=== PATIENT | female | born 1975 | race Caucasian/White ===

== ENCOUNTER 2022-01-29 10:10 | Inpatient (IN) ==
--- NOTE | 2022-01-29 10:23 | Emergency Department Note ---
Impression & Plan Seizure, History of opioid abuse, Alcohol dependence, Acute hypokalemia, Alcohol use disorder, Hypomagnesemia ED Provider Note NAME: MELO RADNALL AGE: 46 SEX: F : 1975 ARRIVES VIA: Ambulance INFORMANT: Patient ED PROVIDER(S): Vishnu Oliveros DO CHIEF COMPLAINT: seizure HPI: Patient is a 46-year-old female with alcohol dependence with hepatitis C, gastroparesis with previous seizures secondary to withdrawal that presents to the ER for seizure. She normally drinks about 10 little bottles of alcohol a day. 2 weeks ago she cut back to 2 drinks and did this gradually. Last drink was 2 days ago. Seizure was witnessed today and lasted for 5 to 7 minutes by her son. EMS brought her in. Denies any headache or change in vision. No chest pain or shortness of breath. No nausea, vomiting, or diarrhea. No dysuria, urgency, or frequency. ROS: See above HPI for pertinent positives & negatives. A total of 10 systems reviewed and were otherwise negative. PAST MEDICAL HISTORY:See Below PAST SURGICAL HISTORY:See Below FAMILY HISTORY:See Below SOCIAL HISTORY:See Below HOME MEDICATIONS:See Below ALLERGIES:See Below VITALS:See Below PHYSICAL EXAMINATION: GENERAL: Sitting up in bed, alert, well appearing, well nourished, no distress, non-toxic EYE EXAM: normal conjunctiva. PERRL and EOM's grossly intact. HEAD: NC/AT OROPHARYNX: no exudate, no erythema, lips, buccal mucosa, and tongue normal and mucous membranes are moist NECK: supple, no nuchal rigidity, no adenopathy, non-tender LUNGS: Clear to auscultation. Normal chest wall mechanics HEART: no murmurs, S1 normal and S2 normal ABDOMEN: abdomen soft, non-tender, normo-active bowel sounds, no masses, no rebound or guarding. BACK: Back is symmetrical on inspection and there is no deformity, no midline tenderness, no CVA tenderness. SKIN: no rashes and no bruising UPPER EXTREMITIES: upper extremities are grossly normal. LOWER EXTREMITIES: No pitting edema. NEURO EXAM: Normal sensorium, cranial nerves II-XII intact, normal speech, no weakness of arms, no weakness of legs. No drift. Finger to nose intact. Gross sensation intact. MEDICAL DECISION MAKING: Patient is a 46-year-old female who presents ER for above-stated complaint. IV was established blood work was obtained. Labs show no significant leukocytosis or anemia. Mild thrombocytopenia at 103. Hypokalemia on the BMP at 2.8 magnesium was low at 1.2. LFTs with mild elevation in AST of 102. T bili slightly up at 2. COVID-negative. CT head was negative. Patient was given IV fluids and Valium. Updated bedside. Admitted for further work-up. Discussed with Dr. Emmanuel Richard for further evaluation. Triage Nursing notes reviewed. Limited review of prior medical records performed Vital Signs: reviewed and remarkable for no significant abnormalities Differential diagnosis: Differential diagnosis includes etiologies such as infection, hypoglycemia, electrolyte abnormalities, cardiac sources, intracerebral event, trauma, tox icologic, neurologic, as well as others were entertained. ER treatment provided: See below Diagnostics interpreted by me: ECG: Sinus rhythm rate 80 Normal axis No PVCs QTC 477 Cardiac Monitoring: An order was placed for continuous cardiac monitoring. The monitor shows a rate of 82 with sinus rhythm. Laboratory studies: As stated above and show below. Imaging studies: CT head was negative Consultation(s): Discussed with Dr. 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 History of stomach ulcers HPV (human papilloma virus) infection Jaw clicking NO LOCKING Migraine Spinal stenosis Surgical History H/O colonoscopy History of esophagogastroduodenoscopy (EGD) Hx laparoscopic cholecystectomy (01/27/20) Family History Grandmother (Maternal) Breast cancer Throat cancer Grandfather (Maternal) Diabetes Heart disease Hypertension Myocardial infarction Other No family history of adverse response to anesthesia Denies family history of Ovarian cancer Prostate cancer Colorectal cancer Social History Smoking Status: Unknown if ever smoked Tobacco Type: E-cigarettes / Vaping packs per day: 1; Cigarettes Per Day: 2 CIG DAILY/VAPE "A LITTLE BIT"; Second Hand Exposure: No; Hx Alcohol Use: Yes Alcohol type: hard liquor Alcohol Intake Frequency: 4 or More x per/Week Hx Substance Use: No Preferred Language: Greenlandic Communication Ability: Effective Visual Impairment: No Limitations Hearing Ability: Normal Fire Pot Operator Required: No Beliefs That Will Affect Care: None marital status: Single Current Living Situation: Family Current Living Situation Comment: WITH SON 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 How many Children do You have: 1 Feels Safe at Home: Yes Childhood Exposure to Second-Hand Smoke: Yes Dental Care, Regularly: Yes Physical Activity Frequency: 5-6 Times per Week Seatbelt Use: sometimes Sunscreen Use: Yes Assistive Devices: None Allergies Allergies Allergy/AdvReac Type Severity Reaction Status Date / Time latex Allergy Mild CRACKS SKIN Verified 11/16/21 17:39 Home Meds Home Medications Medication Instructions Recorded Confirmed gabapentin 300 mg capsule 300 mg PO BID 12/20/19 01/29/22 (Neurontin) buprenorphine 8 mg-naloxone 2 mg 1 tab sublingual DAILY 11/16/21 01/29/22 sublingual tablet topiramate 50 mg tablet (Topamax) 100 mg PO BID 11/16/21 01/29/22 Previous Rx's Medication Instructions Recorded pantoprazole 40 mg tablet,delayed 40 mg PO QAM #90 tabs 11/16/21 release (Protonix) rizatriptan 10 mg tablet See Rx Instructions PO .COMPLEX #9 11/16/21 tabs ondansetron 4 mg disintegrating 4 mg PO Q6H PRN nausea and 01/20/22 tablet vomiting #10 tabs Results & Data (ED) Vital Signs Vital Signs - 24 hr 01/29/22 10:27 01/29/22 10:31 Temperature 36.8 C Temperature Source Oral Pulse Rate 98 H Pulse Rate [Apical] 86 Pulse Rhythm [Apical] Regular Respiratory Rate 16 16 Respiratory Effort / Characteristics Non-Labored Respiratory Depth Normal Blood Pressure 120/81 Blood Pressure Mean 94 Pulse Oximetry 95 96 Oxygen Delivery Method Room Air Room Air Sepsis Recent Fever Within 48 Hours No Sepsis New/Unexplained Change in Mental Status No Sepsis Action Taken by Nursing No Action Required Laboratory Data Result diagrams: 01/29/22 10:26 01/29/22 10: Lab Results 01/29/22 01/29/22 01/29/22 Range/Units 10: 10: 10: WBC 7.93 (4.8-10.8) K/ul RBC 4.19 (3.93-5.22) M/uL Hgb 13.0 (12.0-16.0) g/dl Hct 37.8 (34.1-44.9) % MCV 90.2 (80.0-100.0) fL MCH 31.0 (25.0-34.0) pg MCHC 34.4 (32.0-36.0) g/dL RDW Std Deviation 40.4 (36.4-46.3) fL RDW Coeff of Josh 12.3 (11.5-14.5) % Plt Count 103 L (130-400) K/uL MPV 11.8 (9.4-12.3) fL Immature Gran % (Auto) 0.5 % Neut % (Auto) 72.2 % Lymph % (Auto) 18.8 % [place] % (Auto) 7.6 % Eos % (Auto) 0.1 % Baso % (Auto) 0.8 % Neut # (Auto) 5.73 (1.4-6.5) K/uL Lymph # (Auto) 1.49 (1.2-3.4) K/uL Carolina # (Auto) 0.60 (0.24-0.82) K/uL Eos # (Auto) 0.01 (0-0.50) K/uL Baso # (Auto) 0.06 (0-0.2) K/uL Immature Gran # (Auto) 0.04 H (0.00-0.02) K/uL Sodium 135 L (136-145) mmol/L Potassium 2.8 L (3.5-5.1) mmol/L Chloride 99 (98-107) mmol/L Carbon Dioxide 24 (21-32) mmol/L Anion Gap 12 H (3-11) BUN 26 H (6-23) mg/dl Creatinine 1.12 (0.6-1.2) mg/dl Est Cr Clr Drug Dosing 62.8 ml/min Est GFR ( Amer) 68.7 ml/min Est GFR (Non-Af Amer) 59.3 ml/min BUN/Creatinine Ratio 23.2 H (10-20) Glucose 91 (70-99(Fasting)) mg/dl Calcium 9.5 (8.5-10.1) mg/dl Magnesium 1.2 L (1.7-2.4) mg/dl Total Bilirubin 2.0 H (0.2-1.0) mg/dl AST 102 H (13-39) U/L ALT 39 (7-52) U/L Alkaline Phosphatase 82 (34-104) U/L Total Protein 6.9 (6.0-8.3) gm/dl Albumin 4.2 (3.4-5.0) gm/dl Globulin 2.7 (2.5-4.0) gm/dl Albumin/Globulin Ratio 1.6 (0.9-2) Ethyl Alcohol mg/dL < 10.0 (<10.0) mg/dl Administered Medications Potassium Chloride (K Alexei / Wtr) 10 meq in 100 mls @ 100 mls/hr IV Q1H ESTELA; Protocol Stop: 01/29/22 14:44 Last Admin: 01/29/22 12:56 Dose: 100 mls/hr Documented By: CARLOS Magnesium Sulfate/Dextrose (Magnesium Sulfate / D5w) 1 gm in 100 mls @ 100 mls/hr IV Q1H ESTELA Stop: 01/29/22 14:31 Last Admin: 01/29/22 12:56 Dose: 100 mls/hr Documented By: CARLOS Lactated Ringer's (Lr) 1,000 mls @ 125 mls/hr IV .Q8H ESTELA Stop: 02/28/22 12:53 Last Admin: 01/29/22 13:20 Dose: 125 mls/hr Documented By: CARLOS Discontinued Medications Diazepam (Diazepam 5 Mg/Ml Inj 10ml Vial) 2 mg IV NOW STA Stop: 01/29/22 10:20 Last Admin: 01/29/22 10:46 Dose: 2 mg Documented By: CARLOS Multivitamins 10 ml/ Thiamine HCl 100 mg/ Folic Acid 1 mg/Sodium Chloride 1,011.2 mls @ 1,011.2 mls/hr IV .Q1H ONE Stop: 01/29/22 13:34 Last Admin: 01/29/22 13:17 Dose: 1,011.2 mls/hr Documented By: KV Imaging Data Radiologist's Impression: Head CT 01/29/22 11:[address] DOSE: 537.48 mGy.cm HISTORY: Seizure like activity. fall TECHNIQUE: Multiaxial CT images of the head were performed without the use of intravenous contrast. Automated exposure control was utilized for this study. A dose lowering technique was utilized adhering to the principles of ALARA. Comparison: Head CT 08/25/2021. Findings: The paranasal sinuses and mastoid air cells are clear. The calvarium and skull base are intact. The ventricles and sulci are within normal limits. There is no mass, hematoma, midline shift, or acute infarct. Impression: No acute intracranial abnormality. ACT 112: Negative or not required by law. Electronically signed by: Dylon Jimenez M.D. 01/29/2022 11:42 AM Discharge Plan Visit Data Chief Complaint: Alcohol Withdrawal Stated Complaint: SEIZURE ED Provider: Vishnu Oliveros Discharge Problem: Seizure, History of opioid abuse, Alcohol dependence, Acute hypokalemia, Alcohol use disorder, Hypomagnesemia Patient Disposition: Admitted As Inpatient Discharge Instructions Interventions: ED Discharge Assessment Last Done: 01/29/22 12:44
[2022-01-29 11:00] LABS: Hematocrit (blood only) 37.8 % (34.1-44.9); Mean Corpuscular Hgb Conc 34.4 g/dL (32.0-36.0); Mean Corpuscular Volume 90.2 fL (80.0-100.0); Mean Platelet Volume 11.8 fL (9.4-12.3); Platelet Count 103 K/uL (130-400); RDW Coefficient of Variation 12.3 % (11.5-14.5); RDW Standard Deviation 40.4 fL (36.4-46.3); Red Blood Count 4.19 M/uL (3.93-5.22); White Blood Count 7.93 K/ul (4.8-10.8)
[2022-01-29 11:23] LABS: Albumin Globulin Ratio 1.6 (0.9-2); Albumin Level 4.2 gm/dl (3.4-5.0); BUN Creatinine Ratio 23.2 (10-20); Calcium 9.5 mg/dl (8.5-10.1); Creatinine Clr Calc Pharmacy 62.8 ml/min; Est GFR (African American) 68.7 ml/min; Est GFR (Non-African American) 59.3 ml/min; Globulin 2.7 gm/dl (2.5-4.0); Magnesium 1.2 mg/dl (1.7-2.4); Potassium 2.8 mmol/L (3.5-5.1); Total Protein 6.9 gm/dl (6.0-8.3)
[2022-01-29 11:29] LABS: Basophils # (auto) 0.06 K/uL (0-0.2); Basophils % (auto) 0.8 %; Eosinophils # (auto) 0.01 K/uL (0-0.50); Eosinophils % (auto) 0.1 %; Immature Granulocytes # (auto) 0.04 K/uL (0.00-0.02); Immature Granulocytes % (auto) 0.5 %; Lymphocytes # (auto) 1.49 K/uL (1.2-3.4); Lymphocytes % (auto) 18.8 %; Monocytes % (auto) 7.6 %; Neutrophils # (auto) 5.73 K/uL (1.4-6.5); Neutrophils % (auto) 72.2 %
--- NOTE | 2022-01-29 11:43 | CT Scan Report ---
HEAD CT NONCONTRAST CT DOSE: 537.48 mGy.cm HISTORY: Seizure like activity. fall TECHNIQUE: Multiaxial CT images of the head were performed without the use of intravenous contrast. A utomated exposure control was utilized for this study. A dose lowering technique was utilized adheri ng to the principles of ALARA. Comparison: Head CT 08/25/2021. Findings: The paranasal sinuses and mastoid air cells are clear. The calvarium and skull base are int act. The ventricles and sulci are within normal limits. There is no mass, hematoma, midline shift, or acute infarct. Impression: No acute intracranial abnormality. ACT 112: Negative or not required by law. Electronically signed by: Dylon Jimenez M.D. 01/29/2022 11:42 AM
--- NOTE | 2022-01-29 12:26 | History & Physical Report ---
Date of Service January 29, 2022 Assessment & Plan (1) Alcohol use disorder: Plan: 10+ 3.4-oz mini liquor bottles/day, slightly more over the past several weeks due to job stress. Recently cut back, last week went 5 days alcohol free, and then had 2 shots two days ago, 01/27 and today had a witnessed seizure lasting ~[address] without acute injury. EtOH level <10.0 Active withdrawal protocol with scheduled gabapentin and Ativan as needed. IVF with repletion of potassium and magnesium. Folate and thiamine daily. AST 102, consistent with alcohol use disorder, all other LFTs WNL, does not appear to be an acute alcohol hepatitis. Continue Protonix daily. No history of esophageal varices/hematemesis/concern for UGI bleed today. Patient offered referral to case management for outpatient programs and services referral, declines at this time. Encouraged her to reach out to staff if she changes her mind. (2) Acute hypokalemia: Plan: K 2.8, will repeat and recheck with a.m. labs. (3) Hypomagnesemia: Plan: 1.2, will replete and recheck with a.m. labs. (4) Anxiety and depression: Plan: Managed by outside psychiatry, on gabapentin 300 mg twice daily. (5) History of opioid abuse: Plan: History of heroin and opioid pill use disorder, in remission, currently on Suboxone daily tab. PDMP reviewed. History of Present Illness Chief Complaint: Seizure at home this morning Primary Care Provider: NO PCP Laverne Jenkins is a 46-year-old female with past medical history significant for active alcohol use disorder, previous heroin use disorder now in remission, hepatitis C infection, anxiety, depression, and gastroparesis who is presenting today after witnessed seizure at home. Patient states she is an alcoholic and has been drinking at least 10 3.4-oz bottles of liquor/day, but estimates it is probably been more than 10 over the past several weeks. Last week, she tried to cut down her alcohol intake to just 2 of these mini bottles a day, and had gone 5 days alcohol free last week, and then had 2 shots of alcohol 2 days ago, 01/27. She has been under a significant amount of stress lately related to her job which she recently quit. This morning in front of her son she had seizure-like activity that lasted for several minutes, she estimates no more than 5 minutes. She has no recollection of the event, does not believe she hit her head and is without any head pain or pain elsewhere. She has never been hospitalized for alcohol withdrawal, but has been to rehab several times and has had seizures related to withdrawal attempts in the past. Upon presentation she is hemodynamically stable, vital signs within normal limits. Labs significant for low potassium of 2.8, magnesium 1.2, T bili 2.0, AST 102, other LFTs within normal limits. Alcohol level <10.0. Platelets 103. Head CT unremarkable for acute injury or process. Allergies Allergy/AdvReac Type Severity Reaction Status Date / Time latex Allergy Mild CRACKS SKIN Verified 11/16/21 17:39 Home Medications Medication Instructions Recorded Confirmed Type gabapentin 300 mg capsule 300 mg PO BID 12/20/19 01/29/22 History (Neurontin) buprenorphine 8 mg-naloxone 2 mg 1 tab sublingual DAILY 11/16/21 01/29/22 History sublingual tablet pantoprazole 40 mg tablet,delayed 40 mg PO QAM #90 tabs 11/16/21 01/29/22 Rx release (Protonix) rizatriptan 10 mg tablet See Rx Instructions PO .COMPLEX #9 11/16/21 01/29/22 Rx tabs topiramate 50 mg tablet (Topamax) 100 mg PO BID 11/16/21 01/29/22 History ondansetron 4 mg disintegrating 4 mg PO Q6H PRN nausea and 01/20/22 01/29/22 Rx tablet vomiting #10 tabs Past Med/Surg History Medical History (Updated 01/29/22 @ 13:14 by Aubree Eller PA-C) Anxiety and depression Cholelithiasis Chronic back pain LOWER BACK/NECK PAIN GERD (gastroesophageal reflux disease) Hepatitis C NO TREATMENT History of back problems History of blood clots PE-5-6 YRS AGO-"SMOKER/ON DEPO SHOT-TREATED AT THE TIME WITH BLOOD THINNERS"- NO ISSUES SINCE History of opioid abuse 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 History of stomach ulcers HPV (human papilloma virus) infection Jaw clicking NO LOCKING Migraine Spinal stenosis Surgical History H/O colonoscopy History of esophagogastroduodenoscopy (EGD) Hx laparoscopic cholecystectomy (01/27/20) Family History Grandmother (Maternal) Breast cancer Throat cancer Grandfather (Maternal) Diabetes Heart disease Hypertension Myocardial infarction Other No family history of adverse response to anesthesia Denies family history of Ovarian cancer Prostate cancer Colorectal cancer Social History Smoking Status: Unknown if ever smoked Tobacco Type: E-cigarettes / Vaping packs per day: 1; Cigarettes Per Day: 2 CIG DAILY/VAPE "A LITTLE BIT"; Second Hand Exposure: No; Hx Alcohol Use: Yes Alcohol type: hard liquor Alcohol Intake Frequency: 4 or More x per/Week Hx Substance Use: No Preferred Language: Moroccan Communication Ability: Effective Visual Impairment: No Limitations Hearing Ability: Normal Assessment Specialist Required: No Beliefs That Will Affect Care: None marital status: Single Current Living Situation: Family Current Living Situation Comment: WITH SON 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 How many Children do You have: 1 Feels Safe at Home: Yes Childhood Exposure to Second-Hand Smoke: Yes Dental Care, Regularly: Yes Physical Activity Frequency: 5-6 Times per Week Seatbelt Use: sometimes Sunscreen Use: Yes Assistive Devices: None Review of Systems Review of Systems: Constitutional: No fever/chills, weakness, fatigue, myalgias, anorexia, night sweats Eyes: No diplopia, no worsening or blurred vision ENT: normal hearing, no trouble swallowing Respiratory: No cough, sputum, dyspnea at rest or on exertion Cardiovascular: No chest pain, tightness or palpitations Abdomen: No pain, nausea, vomiting, diarrhea or constipation : Denies dysuria, hematuria, increased urgency/frequency, urinary retention Musculoskeletal: No joint pain, calf pain, swelling Neurologic: No weakness, numbness/tingling, or balance problems Psychiatric: No anxiety or depression Skin: No rash or itch Physical Exam Physical Exam: General: awake, alert, pleasant and cooperative, no apparent distress, mildly tremulous Head: Normocephalic, atraumatic ENT: PERRL, EOMI, no pharyngeal exudate, mucous membranes moist Chest: Clear to auscultation, on room air, no adventitious breath sounds Cardiac: Regular rate and rhythm, no murmur, no JVD, normal peripheral pulses, good capillary refill Abdominal: NABS x 4 quadrants, soft, nontender to palpation, no rebound, guarding or tenderness Extremities: Normal inspection, no peripheral edema or erythema, calfs nontender to palpation Psych: Normal mood and affect Neuro: AAO x 3, strength intact bilaterally and rated 5/5, no motor deficits, speech is clear, no peripheral sensory deficits Skin: Skin tear on right fifth metacarpal due to punching a wall this week, does not appear infected, able to move all digits without significant pain no swelling Results & Data Results & Data ([facility]) Vital Signs (Past 12 Hours) Vital Signs Temp Pulse Pulse Resp BP Pulse Ox O2 Del Method 01/29/22 10:31 86 16 96 Room Air 01/29/22 10:27 36.8 C 98 H 16 120/81 95 Room Air Laboratory Results Abnormal lab results 01/29/22 01/29/22 Range/Units 10:26 10:26 Plt Count 103 L (130-400) K/uL Immature Gran # (Auto) 0.04 H (0.00-0.02) K/uL Sodium 135 L (136-145) mmol/L Potassium 2.8 L (3.5-5.1) mmol/L Anion Gap 12 H (3-11) BUN 26 H (6-23) mg/dl BUN/Creatinine Ratio 23.2 H (10-20) Magnesium 1.2 L (1.7-2.4) mg/dl Total Bilirubin 2.0 H (0.2-1.0) mg/dl AST 102 H (13-39) U/L Diagnostic Findings Head CT 01/29/22 11:[address] DOSE: 537.48 mGy.cm HISTORY: Seizure like activity. fall TECHNIQUE: Multiaxial CT images of the head were performed without the use of intravenous contrast. Automated exposure control was utilized for this study. A dose lowering technique was utilized adhering to the principles of ALARA. Comparison: Head CT 08/25/2021. Findings: The paranasal sinuses and mastoid air cells are clear. The calvarium and skull base are intact. The ventricles and sulci are within normal limits. There is no mass, hematoma, midline shift, or acute infarct. Impression: No acute intracranial abnormality. ACT 112: Negative or not required by law. Electronically signed by: Dylon Jimenez M.D. 01/29/2022 11:42 AM ECG Additional Comments: Normal sinus rhythm T wave abnormality, consider lateral ischemia Prolonged QT Abnormal ECG When compared with ECG of 26-JUL-2021 01:14, Incomplete right bundle branch block is no longer Present T wave inversion now evident in Lateral leads. Code Status & VTE Plan Code Status Full code. Supervising Physician Co-Signing Physician Notes Patient was seen and examined independently I discussed the case with Aubree MAC I reviewed pertinent past medical social family history and also the plan of care and agree with the plan of care. Patient is here with request for alcohol withdrawal treatment. Patient follows with [place] and also [place] for counseling as an outpatient. Patient states work stress related to working at the [employer] led to her increasing her alcohol intake. She is quit her job. She has support at home with a son who lives in the home with her Physical exam she is not tremulous at this time she does have a open area on her right fifth knuckle which she says she punched a wall she is no tenderness to the metacarpals of that hand does not appear to be infected. She is not tachycardic at this time she is minor tremulousness use no asterixis she is alert and oriented Patient be admitted for alcohol withdrawal she was offered counseling as an inpatient which she declined but I told her if she reconsiders to let us know Patient is significantly hypokalemic/hypomagnesemic which will be repleted She does not appear to have alcoholic hepatitis at this time Intake alcohol is 0 Any exceptions will be noted below PG Care Time/CCT Total # of Minutes Spent Total Time Spent with Patient: Total time spent is greater than 50% in coordination of care (as documented) at patient's floor/unit and/or counseling patient: Coding Level of Care Code 56376 Initial Inpt Care Lvl 3 Diagnoses Alcohol use disorder F19.90 Acute hypokalemia E87.6 Hypomagnesemia E83.42 Anxiety and depression F41.9; F32.A History of opioid abuse F11.11
[2022-01-29] MEDS ORDERED: MULTI-VITAMIN INFUSION 10 ML, THIAMINE HCL 100 MG, FOLIC ACID 1 MG in SODIUM CHLORIDE 0... IV ONE (12:35)
[2022-01-29] MEDS ORDERED: ALUMINUM/MAGNESIUM SUSP 30 ML UDC PO PRN (12:54)
[2022-01-29] MEDS ORDERED: GABAPENTIN 600 MG TAB PO ONE (12:54)
[2022-01-29] MEDS ORDERED: RIZATRIPTAN BENZOATE 10 MG TAB PO PRN (12:54)
[2022-01-29] MEDS ORDERED: Ativan PO Alcohol Withdrawal--Active Protocol PO PRN (12:54)
[2022-01-29] MEDS ORDERED: POLYETHYLENE (MIRALAX) 17 GM PACK PO PRN (12:54)
[2022-01-29] MEDS ORDERED: LORazepam 1 MG TAB PO PRN (12:54)
[2022-01-29] MEDS ORDERED: GABAPENTIN 1200MG ALCOHOL WITHDRAWAL LOAD PO STA (12:54)
[2022-01-29] MEDS: POTASSIUM CHLORIDE / WTR 10 MEQ/100 ML PLCT IV SCH ×2 (12:56→18:09)
[2022-01-29] MEDS: MAGNESIUM SULFATE / D5W 1 GM/100 ML BAG IV SCH ×3 (12:56→19:25)
[2022-01-29] MEDS: LACTATED RINGER'S 1,000 ML IV SCH ×2 (13:20→21:47)
[2022-01-29 13:30] LABS: Appearance Urine Cloudy (Clear); Bacteria Urine Automated 2+ (Negative); Bilirubin Urine Negative (Negative); Blood Urine Negative (Negative); Color Urine Yellow; Epithelial Cell Urine Auto >30 /lpf (0-5); Glucose Urine UA Negative (Negative); Ketones Urine 2+ (Negative); Leukocyte Esterase Urine 2+ (Negative); Nitrite Urine Negative (Negative); Protein Urine Negative (Negative); RBC Urine Automated 0-4 /hpf (0-4); Specific Gravity Urine 1.011 (1.000-1.030); Urobilinogen Urine Negative (Negative)
[2022-01-29] MEDS: BUPRENORPHINE/NALOXONE 8/2 MG TAB SL SCH (14:02)
[2022-01-29] MEDS: NICOTINE 14 MG/24 HR PATCH TD SCH (14:02)
[2022-01-29] MEDS: POTASSIUM CHLORIDE CRTAB 20 MEQ TABCR PO SCH ×2 (14:02→19:53)
[2022-01-29 14:21] LABS: Amphetamines+Metham, Urine Neg (Neg); Barbiturates, Urine Neg (Neg); Benzodiazepine, Urine Neg (Neg); Cocaine, Urine Neg (Neg); MDMA (Ecstacy), Urine Neg (Neg); Methadone, Urine Neg (Neg); Opiate, Urine Neg (Neg); Phencyclidine, Urine Neg (Neg)
--- NOTE | 2022-01-29 17:10 | Electrocardiogram Report ---
Test Reason : Blood Pressure : / mmHG Vent. Rate : 080 BPM Atrial Rate : 080 BPM P-R Int : 132 ms QRS Dur : 094 ms QT Int : 414 ms P-R-T Axes : 035 014 146 degrees QTc Int : 477 ms Normal sinus rhythm T wave abnormality, consider lateral ischemia Prolonged QT Abnormal ECG When compared with ECG of 26-JUL-2021 01:14, Incomplete right bundle branch block is no longer Present T wave inversion now evident in Lateral leads Confirmed by Vadim Hairston ([id number]) on 01/29/2022 5:09:47 PM Referred By: REFERRED SELF Confirmed By:Vadim Hairston
[2022-01-29] MEDS: FOLIC ACID 1 MG TAB PO SCH (17:19)
[2022-01-29] MEDS: THIAMINE HCL 100 MG TAB PO SCH (17:19)
[2022-01-29] MEDS: PANTOprazole 40 MG TAB PO SCH ×2 (17:20→17:21)
[2022-01-29] MEDS: TOPIRAMATE 100 MG TAB PO SCH (17:22)
[2022-01-29] MEDS: GABAPENTIN 600 MG TAB PO SCH ×2 (18:09→23:39)
[2022-01-29] MEDS: LORazepam 1 MG TAB PO PRN ×2 (19:37→23:38)
[2022-01-29] MEDS: MAGNESIUM OXIDE 400 MG TAB PO SCH (19:54)
[2022-01-30] MEDS: LORazepam 1 MG TAB PO PRN ×2 (00:52→01:59)
[2022-01-30] MEDS ORDERED: LORazepam 3 MG in SYRINGE 0 ML IV PRN (02:08)
[2022-01-30] MEDS ORDERED: Ativan IV Alcohol Withdrawal--Active Protocol IV PRN (02:08)
[2022-01-30] MEDS: MAGNESIUM SULFATE / D5W 1 GM/100 ML BAG IV SCH ×2 (03:47→06:23)
[2022-01-30] MEDS: LACTATED RINGER'S 1,000 ML IV SCH ×3 (05:16→21:15)
[2022-01-30 05:29] LABS: Hematocrit (blood only) 30.5 % (34.1-44.9); Hemoglobin 10.4 g/dl (12.0-16.0); Mean Corpuscular Hemoglobin 31.6 pg (25.0-34.0); Mean Corpuscular Hgb Conc 34.1 g/dL (32.0-36.0); Mean Corpuscular Volume 92.7 fL (80.0-100.0); Mean Platelet Volume 11.3 fL (9.4-12.3); Platelet Count 88 K/uL (130-400); RDW Coefficient of Variation 12.5 % (11.5-14.5); RDW Standard Deviation 41.8 fL (36.4-46.3); Red Blood Count 3.29 M/uL (3.93-5.22); White Blood Count 5.71 K/ul (4.8-10.8)
[2022-01-30 05:37] LABS: Albumin Globulin Ratio 1.5 (0.9-2); Albumin Level 3.2 gm/dl (3.4-5.0); BUN Creatinine Ratio 23.2 (10-20); Bilirubin,Total 1.4 mg/dl (0.2-1.0); Calcium 8.4 mg/dl (8.5-10.1); Creatinine Clr Calc Pharmacy 67.3 ml/min; Est GFR (African American) 83.8 ml/min; Est GFR (Non-African American) 72.3 ml/min; Globulin 2.2 gm/dl (2.5-4.0); Potassium 2.6 mmol/L (3.5-5.1); Total Protein 5.4 gm/dl (6.0-8.3)
[2022-01-30 06:03] LABS: Vitamin B12 543 pg/ml (180-914)
[2022-01-30] MEDS: POTASSIUM CHLORIDE / WTR 10 MEQ/100 ML PLCT IV SCH ×4 (07:47→10:56)
--- NOTE | 2022-01-30 08:37 | Hospitalist Progress Note ---
Date of Service January 30, 2022 Assessment & Plan (1) Alcohol use disorder: Plan: Per HPI - 10+ 3.4-oz mini liquor bottles/day, slightly more over the past several weeks due to job stress. - Recently cut back, last week went 5 days alcohol free, and then had 2 shots two days prior to admission -01/27 and then 01/28 had a witnessed seizure lasting ~5 minutes. - Head CT without acute injury. - EtOH level <10.0 - Active withdrawal protocol with scheduled gabapentin and Ativan as needed. - IVF with repletion of potassium and magnesium. - Folate and thiamine daily. - AST 102, consistent with alcohol use disorder, all other LFTs WNL, does not appear to be an acute alcohol hepatitis. Platelets 88 also consistent with alcohol abuse disorder - Continue Protonix daily. No history of esophageal varices/hematemesis/concern for UGI bleed today. Hgb 10.4 (13) - Continue to monitor Bowel movements for any signs of active GI bleeding - Patient was offered referral to case management for outpatient programs and services referral, declined during admission. Encouraged her to reach out to staff if she changes her mind. (2) AMS (altered mental status): Plan: - Likely secondary to alcohol withdrawal - Will check an Ammonia level - Urine drug screen negative - Await urine culture results (3) Acute hypokalemia: Plan: - K 2.6 early this AM and being replaced with K riders x 4 for 40 meq - repeat K after replacement (4) Hypomagnesemia: Plan: - Mg was 1.2, repleted and recheck was improved to 2.0. - Continue to monitor (5) Anxiety and depression: Plan: - Managed by outside psychiatry, on gabapentin 300 mg twice daily. (6) History of opioid abuse: Plan: History of heroin and opioid pill use disorder, in remission, currently on Suboxone daily tab. PDMP reviewed 01/30/22 Admission and Anticipated Discharge Date Admission Date: January 29, 2022 Subjective Patient was seen this AM in rounds. She was confused and unable to provide any meaningful communication. She was not oriented. She did not know her name and was unable to tell me where she was or what month or year it was. Patient stated that people call her "josh" but wsa unable to tell me her real given name. She thought she was at home with her brother. She denies any complaints. Review of Systems Review of Systems: Unable to complete an accurate ROS secondary to patient's altered mental status Physical Exam Constitutional: + altered mental status and + lethargic Eyes: PERRL, conjunctivae normal, anicteric sclerae ENMT: external ear and nose normal, oropharynx normal Neck: trachea midline, no thyromegaly Respiratory: normal respiratory effort, lungs clear to auscultation Cardiovascular: RRR, no murmur, no edema Gastrointestinal (Abdomen): normal bowel sounds, soft, nontender, no hepatosplenomegaly Neurologic: moves all extremities, awake and + confused Results & Data Results & Data ([facility]) Vital Signs (Past 12 Hours) Vital Signs Temp Pulse Resp BP 01/30/22 04:00 82 18 01/30/22 03:50 82 17 01/30/22 03:40 82 18 01/30/22 03:30 85 17 01/30/22 03:20 106 H 19 01/30/22 03:10 98 H 18 01/30/22 03:00 112 H 35 H 01/30/22 02:50 104 H 23 01/30/22 02:40 117 H 21 01/30/22 02:30 104 H 25 H 01/30/22 02:20 97 H 18 01/30/22 02:10 105 H 22 01/30/22 02:00 102 H 23 01/30/22 01:50 97 H 21 01/30/22 01:40 87 15 01/30/22 01:30 106 H 21 01/30/22 01:20 104 H 35 H 01/30/22 01:10 90 27 H 01/30/22 01:00 87 18 01/30/22 00:50 79 19 01/30/22 00:41 113 H 19 01/30/22 00:30 121 H 32 H 01/30/22 00:20 85 14 01/30/22 00:10 84 20 01/30/22 00:00 89 19 01/29/22 23:50 103 H 18 01/29/22 23:40 85 20 01/29/22 23:30 84 19 01/29/22 23:20 76 21 01/30/22 02:19 36.4 C L 01/29/22 23:10 86 18 01/29/22 23:00 79 23 01/29/22 22:50 87 20 01/29/22 22:40 75 15 01/29/22 22:34 110/73 01/29/22 22:34 82 33 H 01/29/22 22:33 125 H 21 01/29/22 22:20 78 19 01/29/22 22:10 79 21 01/29/22 22:00 77 13 01/29/22 21:50 77 18 01/29/22 21:40 79 16 01/29/22 21:30 75 27 H 01/29/22 21:20 76 16 01/29/22 21:10 76 15 01/29/22 22:43 36.9 C 01/29/22 21:00 78 16 01/29/22 20:50 75 26 H 01/29/22 20:40 73 18 Laboratory Results Abnormal lab results 01/29/22 01/29/22 01/29/22 Range/Units 10:26 10:26 Unknown RBC (3.93-5.22) M/uL Hgb (12.0-16.0) g/dl Hct (34.1-44.9) % Plt Count 103 L (130-400) K/uL Immature Gran # (Auto) 0.04 H (0.00-0.02) K/uL Sodium 135 L (136-145) mmol/L Potassium 2.8 L (3.5-5.1) mmol/L Anion Gap 12 H (3-11) BUN 26 H (6-23) mg/dl BUN/Creatinine Ratio 23.2 H (10-20) Glucose (70-99(Fasting)) mg/dl Calcium (8.5-10.1) mg/dl Magnesium 1.2 L (1.7-2.4) mg/dl Total Bilirubin 2.0 H (0.2-1.0) mg/dl AST 102 H (13-39) U/L Total Protein (6.0-8.3) gm/dl Albumin (3.4-5.0) gm/dl Globulin (2.5-4.0) gm/dl Urine Appearance Cloudy A (Clear) Urine Ketones 2+ H (Negative) Ur Leukocyte Esterase 2+ H (Negative) Urine WBC (Auto) 10-30 H (0-5) /hpf U Epithel Cells (Auto) >30 H (0-5) /lpf Urine Bacteria (Auto) 2+ H (Negative) 01/30/22 01/30/22 Range/Units 04:52 04:52 RBC 3.29 L (3.93-5.22) M/uL Hgb 10.4 L (12.0-16.0) g/dl Hct 30.5 L (34.1-44.9) % Plt Count 88 L (130-400) K/uL Immature Gran # (Auto) (0.00-0.02) K/uL Sodium (136-145) mmol/L Potassium 2.6 L (3.5-5.1) mmol/L Anion Gap (3-11) BUN (6-23) mg/dl BUN/Creatinine Ratio 23.2 H (10-20) Glucose 100 H (70-99(Fasting)) mg/dl Calcium 8.4 L (8.5-10.1) mg/dl Magnesium (1.7-2.4) mg/dl Total Bilirubin 1.4 H (0.2-1.0) mg/dl AST 101 H (13-39) U/L Total Protein 5.4 L D (6.0-8.3) gm/dl Albumin 3.2 L (3.4-5.0) gm/dl Globulin 2.2 L (2.5-4.0) gm/dl Urine Appearance (Clear) Urine Ketones (Negative) Ur Leukocyte Esterase (Negative) Urine WBC (Auto) (0-5) /hpf U Epithel Cells (Auto) (0-5) /lpf Urine Bacteria (Auto) (Negative) Diagnostic Findings Head CT 01/29/22 11:[address] DOSE: 537.48 mGy.cm HISTORY: Seizure like activity. fall TECHNIQUE: Multiaxial CT images of the head were performed without the use of intravenous contrast. Automated exposure control was utilized for this study. A dose lowering technique was utilized adhering to the principles of ALARA. Comparison: Head CT 08/25/2021. Findings: The paranasal sinuses and mastoid air cells are clear. The calvarium and skull base are intact. The ventricles and sulci are within normal limits. There is no mass, hematoma, midline shift, or acute infarct. Impression: No acute intracranial abnormality. ACT 112: Negative or not required by law. Electronically signed by: Dylon Jimenez M.D. 01/29/2022 11:42 AM PG Care Time/CCT Total # of Minutes Spent Total Time Spent with Patient: Total time spent is greater than 50% in coordination of care (as documented) at patient's floor/unit and/or counseling patient: Coding Level of Care Code 48634 Subseq Hosp Care Lvl 3 Diagnoses Alcohol use disorder F19.90 AMS (altered mental status) R41.82 Acute hypokalemia E87.6 Hypomagnesemia E83.42 Anxiety and depression F41.9; F32.A History of opioid abuse F11.11 Time Spent (min) 20
[2022-01-30] MEDS: GABAPENTIN 600 MG TAB PO SCH ×2 (08:50→18:06)
[2022-01-30] MEDS: THIAMINE HCL 100 MG TAB PO SCH (08:50)
[2022-01-30] MEDS: MAGNESIUM OXIDE 400 MG TAB PO SCH ×2 (08:50→21:16)
[2022-01-30] MEDS: POTASSIUM CHLORIDE CRTAB 20 MEQ TABCR PO SCH ×3 (08:51→21:16)
[2022-01-30] MEDS: TOPIRAMATE 100 MG TAB PO SCH ×2 (08:51→21:16)
[2022-01-30] MEDS: FOLIC ACID 1 MG TAB PO SCH (08:51)
[2022-01-30] MEDS: BUPRENORPHINE/NALOXONE 8/2 MG TAB SL SCH (09:07)
[2022-01-30] MEDS: NICOTINE 14 MG/24 HR PATCH TD SCH (09:32)
[2022-01-30] MEDS: LORazepam 1 MG in SYRINGE 0 ML IV PRN (10:08)
[2022-01-30] MEDS: LORazepam 2 MG in SYRINGE 0 ML IV PRN ×2 (11:01→12:58)
[2022-01-31] MEDS: GABAPENTIN 600 MG TAB PO SCH ×3 (00:37→23:46)
[2022-01-31] MEDS: LACTATED RINGER'S 1,000 ML IV SCH (04:09)
[2022-01-31] MEDS: LORazepam 2 MG in SYRINGE 0 ML IV PRN (04:10)
[2022-01-31 06:31] LABS: Albumin Level 2.9 gm/dl (3.4-5.0); BUN Creatinine Ratio 18.1 (10-20); Bilirubin Direct 0.3 mg/dl (0-0.2); Bilirubin,Total 0.8 mg/dl (0.2-1.0); Calcium 7.9 mg/dl (8.5-10.1); Creatinine Clr Calc Pharmacy 88.8 ml/min; Est GFR (African American) 117.2 ml/min; Est GFR (Non-African American) 101.1 ml/min; INR 1.1 (0.9-1.1); Magnesium 1.6 mg/dl (1.7-2.4); Potassium 3.1 mmol/L (3.5-5.1); Prothrombin Time 11.3 Seconds (9.0-12.0); Total Protein 5.2 gm/dl (6.0-8.3)
[2022-01-31 07:04] LABS: Hematocrit (blood only) 33.2 % (34.1-44.9); Hemoglobin 11.1 g/dl (12.0-16.0); Mean Corpuscular Hemoglobin 31.7 pg (25.0-34.0); Mean Corpuscular Hgb Conc 33.4 g/dL (32.0-36.0); Mean Corpuscular Volume 94.9 fL (80.0-100.0); RDW Coefficient of Variation 12.8 % (11.5-14.5); RDW Standard Deviation 44.3 fL (36.4-46.3); White Blood Count 4.85 K/ul (4.8-10.8)
[2022-01-31 07:25] LABS: Mean Platelet Volume 10.9 fL (9.4-12.3); Platelet Count 97 K/uL (130-400); Platelet Estimate Decreased (Normal)
--- NOTE | 2022-01-31 08:19 | Hospitalist Progress Note ---
Date of Service January 31, 2022 Assessment & Plan (1) Alcohol use disorder: Plan: Per HPI - 10+ 3.4-oz mini liquor bottles/day, slightly more over the past several weeks due to job stress. - Recently cut back, last week went 5 days alcohol free, and then had 2 shots two days prior to admission -01/27 and then 01/28 had a witnessed seizure lasting ~5 minutes. - Head CT without acute injury. - EtOH level <10.0 - Active withdrawal protocol with scheduled gabapentin and Ativan as needed. - IVF with repletion of potassium and magnesium. - Folate and thiamine daily. - AST 139, consistent with alcohol use disorder, all other LFTs WNL, does not appear to be an acute alcohol hepatitis. Platelets 97 also consistent with alcohol abuse disorder - Continue Protonix daily. No history of esophageal varices/hematemesis/concern for UGI bleed today. Hgb 11.1 (10.4) (13) - Continue to monitor Bowel movements for any signs of active GI bleeding (no BM since admission) - Patient tells me that she wants to stop drinking alcohol and was trying to quit on her own because she does not want to do rehab again. She states she did rehab in August. She tells me that she is under alot of stress lately with her son who has problems with marijuana. She tells me she has support from her sister but she lives 2 hours away, she has support from a friend who is helping her currently care for her 17 year old son. - Continue AWSS protocol (2) AMS (altered mental status): Plan: - Likely secondary to alcohol withdrawal - Ammonia level normal 27 - Urine drug screen negative - Improved today (3) Acute hypokalemia: Plan: - K was 2.6 replaced with K riders x 4 for 40 meq on admission - Currently 3.1 - Continue KCl 20meq TID - Repeat labs (4) Hypomagnesemia: Plan: - Mg was 1.2, repleted and recheck was improved to 2.0, Currently is 1.6 - Continue to monitor - Continue Mag Ox BID - Repeat labs (5) Anxiety and depression: Plan: - Managed by outside psychiatry, on gabapentin 300 mg twice daily. (6) History of opioid abuse: Plan: History of heroin and opioid pill use disorder, in remission, currently on Suboxone daily tab. PDMP reviewed 01/30/22 (7) Complicated UTI (urinary tract infection): Plan: - Will start Ceftriaxone 2gm IV daily (stopped lactated ringers) Admission and Anticipated Discharge Date Admission Date: January 29, 2022 Subjective Patient was seen this AM in rounds. She is sitting up in bed an states she is feeling better. She admits to a mild headache and asking for something. She also admits to some urinary urgency. She denies any burning but she does have flank pain. She states she has a history of UTIs and feels like she has one. Urine was + for E Coli. Review of Systems Constitutional: + fatigue; no fever, no chills and no body aches Eyes: no blind spots, no diplopia and no eye pain Respiratory: no cough, no chest congestion and no dyspnea Cardiovascular: no chest pain, no dyspnea and no syncope Gastrointestinal: no nausea, no vomiting, no hematemesis, no blood in stools and no melena Genitourinary: + urinary hesitancy, + urinary urgency and + flank pain; no dysuria Integumentary: no rash, no lesions, no wounds and no pruritus Neurologic: + headache(s); no falls, no loss of sensation and no syncope Psychiatric: + anxiety and + substance abuse; no visual hallucinations Physical Exam Constitutional: cooperative, comfortable and + lethargic Eyes: PERRL, conjunctivae normal, anicteric sclerae ENMT: external ear and nose normal, oropharynx normal Neck: trachea midline, no thyromegaly Respiratory: normal respiratory effort, lungs clear to auscultation Cardiovascular: RRR, no murmur, no edema Gastrointestinal (Abdomen): normal bowel sounds, soft, nontender, no hepatosplenomegaly + bilateral flank pain and mild suprapubic tenderness Neurologic: moves all extremities, awake and + confused Results & Data Results & Data ([facility]) Vital Signs (Past 12 Hours) Vital Signs Temp Pulse Resp BP Pulse Ox 01/31/22 04:40 82 18 01/31/22 04:30 88 20 01/31/22 04:20 105 H 18 01/31/22 04:10 83 17 01/31/22 04:01 84 17 01/31/22 04:01 131/93 01/31/22 04:00 79 20 01/31/22 03:50 84 15 01/31/22 03:40 82 12 01/31/22 03:30 78 14 01/31/22 03:20 84 13 01/31/22 03:10 82 14 01/31/22 03:07 137/99 01/31/22 03:07 85 14 01/31/22 03:00 83 15 01/31/22 02:50 83 14 01/31/22 02:40 86 16 01/31/22 02:30 80 15 01/31/22 02:20 85 17 01/31/22 02:10 95 H 23 01/31/22 02:00 86 21 01/31/22 01:50 89 19 01/31/22 01:40 90 33 H 01/31/22 01:30 81 18 01/31/22 01:20 80 17 01/31/22 01:10 78 15 01/31/22 01:00 79 15 01/31/22 03:09 36.7 C 01/31/22 00:50 78 19 01/31/22 00:40 108 H 22 01/31/22 00:30 78 17 01/31/22 00:20 82 15 01/31/22 00:15 84 16 01/31/22 00:15 133/98 01/31/22 00:14 81 16 01/31/22 00:14 135/100 01/31/22 00:51 81 01/31/22 00:10 91 H 15 01/31/22 00:00 82 20 01/30/22 23:50 81 18 01/30/22 23:40 82 17 01/30/22 23:30 83 15 01/30/22 23:20 83 15 01/30/22 23:10 80 16 01/30/22 23:00 77 18 01/31/22 00:12 36.4 C 01/30/22 22:50 78 17 01/30/22 22:40 90 19 80 L 01/30/22 22:30 81 22 01/30/22 22:20 81 20 01/30/22 22:10 93 H 17 91 01/30/22 22:00 82 15 94 01/30/22 21:50 81 15 95 01/30/22 21:40 82 15 94 01/30/22 21:30 82 20 80 L 01/30/22 21:20 80 17 80 L 01/30/22 21:10 80 15 01/30/22 21:00 82 15 01/30/22 20:50 81 16 01/30/22 20:40 83 15 01/30/22 20:30 82 15 01/30/22 20:20 80 16 Laboratory Results Abnormal lab results 01/31/22 01/31/22 Range/Units 05:29 05:29 RBC 3.50 L (3.93-5.22) M/uL Hgb 11.1 L (12.0-16.0) g/dl Hct 33.2 L (34.1-44.9) % Plt Count 97 L (130-400) K/uL Platelet Estimate Decreased L (Normal) Potassium 3.1 L (3.5-5.1) mmol/L Chloride 111 H (98-107) mmol/L Calcium 7.9 L (8.5-10.1) mg/dl Magnesium 1.6 L (1.7-2.4) mg/dl Direct Bilirubin 0.3 H (0-0.2) mg/dl AST 139 H (13-39) U/L Total Protein 5.2 L (6.0-8.3) gm/dl Albumin 2.9 L (3.4-5.0) gm/dl PG Care Time/CCT Total # of Minutes Spent Total Time Spent with Patient: Total time spent is greater than 50% in coordination of care (as documented) at patient's floor/unit and/or counseling patient: Coding Level of Care Code 15108 Subseq Hosp Care Lvl 3 Diagnoses Alcohol use disorder F19.90 AMS (altered mental status) R41.82 Acute hypokalemia E87.6 Hypomagnesemia E83.42 Anxiety and depression F41.9; F32.A History of opioid abuse F11.11 Complicated UTI (urinary tract infection) N39.0
[2022-01-31] MEDS ORDERED: ACETAMINOPHEN 325 MG TAB PO ONE (09:00)
[2022-01-31] MEDS: TOPIRAMATE 100 MG TAB PO SCH ×2 (09:00→20:37)
[2022-01-31] MEDS: PANTOprazole 40 MG TAB PO SCH (09:00)
[2022-01-31] MEDS: THIAMINE HCL 100 MG TAB PO SCH (09:00)
[2022-01-31] MEDS: FOLIC ACID 1 MG TAB PO SCH (09:00)
[2022-01-31] MEDS: NICOTINE 14 MG/24 HR PATCH TD SCH (09:01)
[2022-01-31] MEDS: POTASSIUM CHLORIDE CRTAB 20 MEQ TABCR PO SCH ×3 (09:02→20:39)
[2022-01-31] MEDS: MAGNESIUM OXIDE 400 MG TAB PO SCH ×2 (09:02→20:38)
[2022-01-31] MEDS: BUPRENORPHINE/NALOXONE 8/2 MG TAB SL SCH (09:02)
[2022-01-31] MEDS: LORazepam 1 MG in SYRINGE 0 ML IV PRN (09:45)
[2022-01-31] MEDS: cefTRIAXone SODIUM 2,000 MG in DEXTROSE 5% 50 ML IV SCH (12:10)
[2022-02-01 07:19] LABS: Hematocrit (blood only) 36.9 % (34.1-44.9); Hemoglobin 12.4 g/dl (12.0-16.0); Mean Corpuscular Hemoglobin 31.9 pg (25.0-34.0); Mean Corpuscular Hgb Conc 33.6 g/dL (32.0-36.0); Mean Corpuscular Volume 94.9 fL (80.0-100.0); Mean Platelet Volume 11.3 fL (9.4-12.3); Platelet Count 140 K/uL (130-400); RDW Coefficient of Variation 12.8 % (11.5-14.5); RDW Standard Deviation 44.6 fL (36.4-46.3); Red Blood Count 3.89 M/uL (3.93-5.22); White Blood Count 5.57 K/ul (4.8-10.8)
[2022-02-01 07:46] LABS: Albumin Level 3.3 gm/dl (3.4-5.0); BUN Creatinine Ratio 15.1 (10-20); Bilirubin Direct 0.2 mg/dl (0-0.2); Bilirubin,Total 0.7 mg/dl (0.2-1.0); Calcium 8.7 mg/dl (8.5-10.1); Creatinine Clr Calc Pharmacy 87.6 ml/min; Est GFR (African American) 115.3 ml/min; Est GFR (Non-African American) 99.5 ml/min; Magnesium 1.8 mg/dl (1.7-2.4); Potassium 3.9 mmol/L (3.5-5.1); Total Protein 5.9 gm/dl (6.0-8.3)
[2022-02-01] MEDS: POTASSIUM CHLORIDE CRTAB 20 MEQ TABCR PO SCH ×2 (08:20→15:04)
[2022-02-01] MEDS: MAGNESIUM OXIDE 400 MG TAB PO SCH (08:20)
[2022-02-01] MEDS: FOLIC ACID 1 MG TAB PO SCH (08:20)
[2022-02-01] MEDS: NICOTINE 14 MG/24 HR PATCH TD SCH (08:20)
[2022-02-01] MEDS: PANTOprazole 40 MG TAB PO SCH (08:20)
[2022-02-01] MEDS: TOPIRAMATE 100 MG TAB PO SCH (08:20)
[2022-02-01] MEDS: THIAMINE HCL 100 MG TAB PO SCH (08:20)
[2022-02-01] MEDS: BUPRENORPHINE/NALOXONE 8/2 MG TAB SL SCH (08:20)
--- NOTE | 2022-02-01 10:34 | Hospitalist Progress Note ---
Date of Service February 01, 2022 Assessment & Plan (1) Alcohol use disorder: Plan: Per HPI - 10+ 3.4-oz mini liquor bottles/day, slightly more over the past several weeks due to job stress. - Recently cut back, last week went 5 days alcohol free, and then had 2 shots two days prior to admission -01/27 and then 01/28 had a witnessed seizure lasting ~5 minutes. - Head CT without acute injury. - EtOH level <10.0 - Active withdrawal protocol with scheduled gabapentin and Ativan as needed. - IVF with repletion of potassium and magnesium. - Folate and thiamine daily. - AST 139, consistent with alcohol use disorder, all other LFTs WNL, does not appear to be an acute alcohol hepatitis. Platelets 97 also consistent with alcohol abuse disorder - Continue Protonix daily. No history of esophageal varices/hematemesis/concern for UGI bleed today. Hgb 11.1 (10.4) (13) - Continue to monitor Bowel movements for any signs of active GI bleeding (no BM since admission) - Patient tells me that she wants to stop drinking alcohol and was trying to quit on her own because she does not want to do rehab again. She states she did rehab in August. She tells me that she is under alot of stress lately with her son who has problems with marijuana. She tells me she has support from her sister but she lives 2 hours away, she has support from a friend who is helping her currently care for her 17 year old son. - Continue AWSS protocol (2) Complicated UTI (urinary tract infection): Plan: - Will start Ceftriaxone 2gm IV daily (stopped lactated ringers) (3) AMS (altered mental status): Plan: - Likely secondary to alcohol withdrawal - Ammonia level normal 27 - Urine drug screen negative - Improved today (4) Acute hypokalemia: Plan: - K was 2.6 replaced with K riders x 4 for 40 meq on admission - Currently 3.1 - Continue KCl 20meq TID - Repeat labs (5) Hypomagnesemia: Plan: - Mg was 1.2, repleted and recheck was improved to 2.0, Currently is 1.6 - Continue to monitor - Continue Mag Ox BID - Repeat labs (6) Anxiety and depression: Plan: - Managed by outside psychiatry, on gabapentin 300 mg twice daily. (7) History of opioid abuse: Plan: History of heroin and opioid pill use disorder, in remission, currently on Suboxone daily tab. PDMP reviewed 01/30/22 Admission and Anticipated Discharge Date Admission Date: January 29, 2022 Results & Data Results & Data ([facility]) Vital Signs (Past 12 Hours) Vital Signs Temp Pulse Pulse Resp BP Pulse Ox Pulse Ox 02/01/22 09:14 84 02/01/22 08:00 95 02/01/22 08:00 36.7 C 105 H 19 127/95 98 02/01/22 08:13 36.8 C 100 H 19 133/102 H 98 02/01/22 04:00 36.7 C 102 H 16 115/86 98 02/01/22 00:00 85 01/31/22 23:48 36.4 C L 95 H 18 127/96 95 O2 Del Method O2 Del Method 02/01/22 09:14 02/01/22 08:00 Room Air 02/01/22 08:00 Room Air 02/01/22 08:13 Room Air 02/01/22 04:00 Room Air 02/01/22 00:00 01/31/22 23:48 Room Air PG Care Time/CCT Total # of Minutes Spent Total Time Spent with Patient: Total time spent is greater than 50% in coordination of care (as documented) at patient's floor/unit and/or counseling patient: Coding Diagnoses Alcohol use disorder F19.90 Complicated UTI (urinary tract infection) N39.0 AMS (altered mental status) R41.82 Acute hypokalemia E87.6 Hypomagnesemia E83.42 Anxiety and depression F41.9; F32.A History of opioid abuse F11.11
[2022-02-01] MEDS: cefTRIAXone SODIUM 2,000 MG in DEXTROSE 5% 50 ML IV SCH (12:31)
--- NOTE | 2022-02-01 16:45 | Discharge Summary ---
Date of Service February 01, 2022 Admission HPI Per Admitting Provider Laverne Jenkins is a 46-year-old female with past medical history significant for active alcohol use disorder, previous heroin use disorder now in remission, hepatitis C infection, anxiety, depression, and gastroparesis who is presenting today after witnessed seizure at home. Patient states she is an alcoholic and has been drinking at least 10 3.4-oz bottles of liquor/day, but estimates it is probably been more than 10 over the past several weeks. Last week, she tried to cut down her alcohol intake to just 2 of these mini bottles a day, and had gone 5 days alcohol free last week, and then had 2 shots of alcohol 2 days ago, 01/27. She has been under a significant amount of stress lately related to her job which she recently quit. This morning in front of her son she had seizure-like activity that lasted for several minutes, she estimates no more than 5 minutes. She has no recollection of the event, does not believe she hit her head and is without any head pain or pain elsewhere. She has never been hospitalized for alcohol withdrawal, but has been to rehab several times and has had seizures related to withdrawal attempts in the past. Upon presentation she is hemodynamically stable, vital signs within normal limits. Labs significant for low potassium of 2.8, magnesium 1.2, T bili 2.0, AST 102, other LFTs within normal limits. Alcohol level <10.0. Platelets 103. Head CT unremarkable for acute injury or process. Principal Diagnosis Alcohol withdrawal Discharge Exam Constitutional WD/WN, vitals as above Respiratory normal respiratory effort, lungs clear to auscultation Cardiovascular RRR, no murmur, no edema Gastrointestinal (Abdomen) normal bowel sounds, soft, nontender, no hepatosplenomegaly Psychiatric A+Ox3, euthymic affect Discharge Data Allergies Allergy/AdvReac Type Severity Reaction Status Date / Time latex Allergy Mild CRACKS SKIN Verified 11/16/21 17:39 Consultations 01/29/22 12:32 ED Decision to Admit Stat Ordered Studies 01/29/22 11:14 CT head/brain wo con Stat CT DOSE: 537.48 mGy.cm HISTORY: Seizure like activity. fall TECHNIQUE: Multiaxial CT images of the head were performed without the use of intravenous contrast. Automated exposure control was utilized for this study. A dose lowering technique was utilized adhering to the principles of ALARA. Comparison: Head CT 08/25/2021. Findings: The paranasal sinuses and mastoid air cells are clear. The calvarium and skull base are intact. The ventricles and sulci are within normal limits. There is no mass, hematoma, midline shift, or acute infarct. Impression: No acute intracranial abnormality. Hospital Course (1) Alcohol use disorder: Laverne Jenkins is a 46 year old female admitted to [facility] from January 29 - 2021 due to a witnessed seizure in the setting of alcohol withdrawal. She was treated with intravenous benzodiazepines during her inpatient stay has no signs or symptoms of alcohol withdrawal on discharge therefore no further benzodiazepines were prescribed. She has missed multiple primary care appointments for follow up and primary care appointment has been made for ongoing medical needs as above with PAPI Rodriguez on February 06, 2022 at 3:15pm. She should also follow up with [facility] for ongoing management and therapy of her alcohol use disorder. She diagnosed with a UTI with symptom of dysuria. Urine culture grew E. coli which was treated with intravenous ceftriaxone 2g IV daily x2 during her inpatient stay. Cefuroxime for a further 5 days as prescribed. She was prescribed magnesium, potassium (due to low levels) and thiamine (due to alcohol use disorder) supplements. (2) Complicated UTI (urinary tract infection): (3) AMS (altered mental status): (4) Acute hypokalemia: (5) Hypomagnesemia: (6) Anxiety and depression: (7) History of opioid abuse: Total Time Total Time Spent Total Time Spent (In Minutes): 40 Discharge Plan Discharge Items Patient Disposition: Home - Self-Care Reason For Visit: ALCOHOL WITHDRAWAL Discharge Diagnosis: Alcohol withdrawal Activity: Resume your previous activity Non-emergency contact: Primary Care Provider Call non-emergency contact if: you have any medication questions and your symptoms worsen Follow-up/Referrals: Hillary Kiran CRNP [Nurse Practitioner] - 02/06/22 3:15 pm () Diet: Regular Addtl Attending Provider Instructions: You were admitted to [facility] from January 29 - 2021 due to a witnessed seizure in the setting of alcohol withdrawal. You were treated with intravenous benzodiazepines during your inpatient stay but given you are now through your withdrawal stage no further benzodiazepines are recommended on discharge. A primary care appointment has been made for ongoing medical needs as above with PAPI Rodriguez on February 06, 2022 at 3:15pm. Please also follow up with [facility] for ongoing management and therapy of your alcohol use disorder. You were also diagnosed with a UTI. Urine culture grew E. coli which was treated with intravenous ceftriaxone during your inpatient stay. Please continue antibiotics with cefuroxime for a further 5 days as prescribed. Your magnesium and potassium levels were low. Please continue supplements as prescribed. Thiamine is recommended for all patients who have alcohol use disorder - recommend taking 100mg daily. Pending Studies at Discharge: No Stand-Alone Forms: My [facility] [place] [employer], Smoking Cessation Medications and DC Order Prescriptions: New magnesium oxide 400 mg (241.3 mg magnesium) Tablet 400 mg PO QAM Qty: 30 0RF potassium chloride 20 mEq tablet extended release 20 meq PO DAILY Qty: 30 0RF thiamine HCl (vitamin B1) 100 mg tablet 100 mg PO DAILY Qty: 30 0RF Continued pantoprazole [Protonix] 40 mg tablet,delayed release (DR/EC) 40 mg PO QAM Qty: 90 1RF rizatriptan 10 mg tablet See Rx Instructions PO .COMPLEX Qty: 9 1RF Rx Instructions: take 1 tab at onset of headache; if no relief may repeat 1 tab after at least 2 hrs; max = 3 tabs/24 hr PO gabapentin [Neurontin] 300 mg capsule 300 mg PO BID buprenorphine-naloxone 8-2 mg tablet, sublingual 1 tab SUBLINGUAL DAILY topiramate [Topamax] 50 mg tablet 100 mg PO BID ondansetron 4 mg tablet,disintegrating 4 mg PO Q6H PRN (Reason: nausea and vomiting) Qty: 10 0RF Discharge Orders: Discharge Order (Routine); Ordered 02/01/22 Ordered By: Felipe Brooke Admission Data Admit Date/Time: 01/29/22 12:34 Attending Provider: Felipe Brooke Admit Provider: Diogenes Escobedo Primary Care Provider: PCP,NO Other Providers: Diogenes Escobedo Other Interventions: Discharge Summary Assessment (RN) Last Done: 02/01/22 15:59 Coding Level of Care Code D/C DAY MANAGEMENT >30 MINS Diagnoses Alcohol use disorder F19.90 Complicated UTI (urinary tract infection) N39.0 AMS (altered mental status) R41.82 Acute hypokalemia E87.6 Hypomagnesemia E83.42 Anxiety and depression F41.9; F32.A History of opioid abuse F11.11
[2022-02-02] MEDS ORDERED: GABAPENTIN 600 MG TAB PO SCH
== END 2022-02-01 18:00 | disposition home or self-care (01) | DRG 897 ==
LOC: ED 10:10 → SUATTDRO 12:34 → EDINP 12:34 → 1E 12:44

== ENCOUNTER 2022-09-27 18:07 | Inpatient (IN) ==
[2022-09-27] MEDS ORDERED: ACETAMINOPHEN 1,000 MG/100 ML VIAL IV STA (18:27)
[2022-09-27] MEDS ORDERED: CEROVITE ADV FORMULA TAB PO STA (18:27)
[2022-09-27] MEDS ORDERED: ONDANSETRON INJ 2 MG/ML 2 ML VIAL IV STA ×2 (18:27→20:22)
[2022-09-27] MEDS ORDERED: THIAMINE HCL 100 MG, FOLIC ACID 1 MG in SODIUM CHLORIDE 0.9% 1000ML 1,000 ML IV STA (18:27)
[2022-09-27] MEDS ORDERED: SODIUM CHLORIDE 0.9% 500 ML IV SCH (18:30)
--- NOTE | 2022-09-27 18:31 | Emergency Department Note ---
Impression & Plan Headache, Vomiting, Alcohol abuse, Hypokalemia ED Provider Note NAME: MELO RANDALL AGE: 46 SEX: F : 1975 ARRIVES VIA: Ambulance INFORMANT: [Patient][ems] ED PROVIDER(S): [Zain Sandra MD] CHIEF COMPLAINT: Headache, HISTORY OF PRESENT ILLNESS: The patient is a 46-year-old female who around 2 weeks ago was diagnosed with a concussion. CT imaging was unrevealing. She was seen by her doctor's office today and complained of a headache and vomiting. She was thought to be intoxicated with alcohol. Repeat CT imaging of the brain was suggested. The patient's family was concerned about her behavior, they called EMS. When EMS arrived, the patient was refusing transfer. After discussion with medical command, the patient did come in by ambulance for evaluation. The patient complains of nausea and vomiting yesterday. She has had some diarrhea, she complains of a headache and just not feeling well. She states that her family thinks that she is acting differently. She does admit to drinking alcohol today but does not feel intoxicated. The patient has also noticed some urinary burning as well as some diffuse abdominal pain. She just does not feel well. PMHx/PSHx: See Below SOCIAL HISTORY: See Below. PHYSICAL EXAM: GENERAL: Patient is in no acute distress. HEENT: No acute trauma, normocephalic atraumatic, mucous membranes dry, no nasal congestion. NECK: No stridor, no adenopathy, no meningismus, trachea is midline. LUNGS: Clear to auscultation bilaterally, no wheeze, no rhonchi, breath sounds equal. HEART: Without murmurs gallops or rubs, regular rate and rhythm. ABDOMEN: Soft, nontender abdomen, bowel sounds positive, no peritonitis. EXTREMITIES: No cyanosis or edema, full range of motion of all the joints without pain or difficulty, no signs for acute trauma. NEUROLOGIC: Awake, slight speech slurred. Moves all extremities. Answers questions appropriately. SKIN: No rash, no jaundice, no diaphoresis. DIFFERENTIAL DIAGNOSIS: Alcohol abuse, concussion, intracranial bleeding, subdural hematoma, electrolyte imbalance, anemia, UTI, viral illness, dehydration, among others. EMERGENCY DEPARTMENT COURSE/PROCEDURES: Prior/Outside records reviewed: Recent ED note, EMS notes. ECG per my interpretation: Indication was vomiting and weakness. The ECG shows a normal sinus rhythm with a rate of 70. There is no ST elevation, no PVCs. There is poor R wave progression. There is a QTc of 432. Continuous Cardiac Monitoring per my interpretation: An order was placed for continuous cardiac monitoring. The monitor shows a rate of 75 with normal sinus rhythm. MEDICAL DECISION MAKING: There is no leukocytosis or concerning anemia. There is a normal platelet count. Potassium somewhat low at 3.3. No renal failure. No concerning liver enzyme elevation. The patient appeared to be in a euthyroid state. testing returned negative. ECG showed a normal sinus rhythm, no ischemia. Cardiac enzyme testing x1 is not consistent with acute cardiac injury. Aspirin and Tylenol levels were undetectable. COVID test returned negative. Brain CT showed no acute bleed or mass effect. Alcohol level returned high at 371. The patient received a 500 cc saline bolus. She was given IV saline with multivitamins, thiamine and folate. She was ordered for IV Zofran, a second dose of IV Zofran was given. She received IV morphine for pain, IV Tylenol for pain. She was given a dose of IV Phenergan for persistent nausea and vomiting. She was ordered for IV potassium. The patient did have an episode of bradycardia, this may have been vagally mediated. The patient has a persistent headache, she has had persistent nausea and vomiting despite multiple medications. Her alcohol level is high. She is in no condition for discharge. I do think hospitalization would be warranted. I spoke with the patient and case management, the on-call hospitalist was consulted. Because of her ongoing symptoms, I did order for IV Ativan, 0.5 mg. I also ordered IV Toradol, 15 mg. DISPOSITION: Given her presentation and findings, hospitalization was felt warranted. 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 History of stomach ulcers HPV (human papilloma virus) infection Jaw clicking NO LOCKING Migraine Spinal stenosis Surgical History H/O colonoscopy History of esophagogastroduodenoscopy (EGD) Hx laparoscopic cholecystectomy (01/27/20) Family History Grandmother (Maternal) Breast cancer Throat cancer Grandfather (Maternal) Diabetes Heart disease Hypertension Myocardial infarction Uncle Skin cancer Aunt Breast cancer Grandmother (Paternal) Breast cancer Other No family history of adverse response to anesthesia Denies family history of Ovarian cancer Prostate cancer Colorectal cancer Social History Smoking Status: Current every day smoker Tobacco Type: E-cigarettes / Vaping packs per day: 1; Cigarettes Per Day: 2 CIG DAILY/VAPE "A LITTLE BIT"; Second Hand Exposure: No; Do You Dip or Chew Tobacco: No; Hx Alcohol Use: No Hx Substance Use: No Preferred Language: Divehi Communication Ability: Effective Visual Impairment: No Limitations Hearing Ability: Normal Veterinary Microbiologist Required: No Beliefs That Will Affect Care: None marital status: Single Current Living Situation: Family Current Living Situation Comment: with son 17 year old 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 How many Children do You have: 1 Feels Safe at Home: Yes Childhood Exposure to Second-Hand Smoke: Yes Diet: regular Dental Care, Regularly: Yes Physical Activity Frequency: 5-6 Times per Week Seatbelt Use: sometimes Sunscreen Use: Yes Gender Identity: Male Assistive Devices: None Allergies Allergies Allergy/AdvReac Type Severity Reaction Status Date / Time latex Allergy Mild CRACKS SKIN Verified 09/27/22 15:34 Home Meds Home Medications Medication Instructions Recorded Confirmed buprenorphine 8 mg-naloxone 2 mg 2 tab sublingual DAILY 05/30/22 09/27/22 sublingual tablet lamotrigine 25 mg tablet (Lamictal) 25 mg PO BID 09/27/22 09/27/22 Previous Rx's Medication Instructions Recorded hydroxyzine HCl 50 mg tablet 50 mg PO BID #60 tabs 07/10/22 polyethylene glycol 3350 17 17 g PO DAILY #119 grams 07/10/22 gram/dose oral powder (Miralax) sertraline 50 mg tablet 50 mg PO DAILY #30 tabs 07/10/22 gabapentin 600 mg tablet 600 mg PO TID 30 days #90 tabs 07/27/22 pantoprazole 40 mg tablet,delayed 40 mg PO DAILY #90 tabs 07/27/22 release topiramate 50 mg tablet 50 mg PO BID #30 tabs 08/03/22 ondansetron 4 mg disintegrating 4 mg PO Q8H PRN nausea and 08/28/22 tablet vomiting #20 tabs rizatriptan 10 mg tablet See Rx Instructions PO .COMPLEX 09/18/22 #14 tabs Results & Data (ED) Vital Signs Vital Signs - 24 hr 09/27/22 18:32 09/27/22 20:11 09/27/22 20:11 Temperature 37.0 C 36.7 C Temperature Source Oral Oral Pulse Rate 75 68 Pulse Rate [Right Finger] 68 Pulse Rhythm Regular Pulse Rhythm [Right Finger] Regular Pulse Strength [Right Finger] Normal Respiratory Rate 15 16 16 Respiratory Effort / Characteristics Non-Labored Spontaneous Non-Labored Spontaneous Respiratory Depth Normal Respiratory Pattern Regular Regular Blood Pressure 125/91 Blood Pressure [Left Arm] 125/91 Blood Pressure Mean 102 Blood Pressure Mean [Left Arm] 102 Blood Pressure Position [Left Arm] Semi-fowlers Pulse Oximetry 94 98 98 Oxygen Delivery Method Room Air Room Air Room Air Sepsis Recent Fever Within 48 Hours No Sepsis New/Unexplained Change in Mental Status N/A Sepsis Action Taken by Nursing No Action Required 09/27/22 21:28 09/27/22 21:35 Temperature Temperature Source Pulse Rate 100 H 40 L Pulse Rate [Right Finger] Pulse Rhythm Pulse Rhythm [Right Finger] Pulse Strength [Right Finger] Respiratory Rate Respiratory Effort / Characteristics Respiratory Depth Respiratory Pattern Blood Pressure Blood Pressure [Left Arm] Blood Pressure Mean Blood Pressure Mean [Left Arm] Blood Pressure Position [Left Arm] Pulse Oximetry Oxygen Delivery Method Sepsis Recent Fever Within 48 Hours Sepsis New/Unexplained Change in Mental Status Sepsis Action Taken by [facility] Medications Current Medication List: was personally reviewed by me Laboratory Data Attestation: I reviewed the patient's lab results. 09/27/22 18:40 09/27/22 18:40 Lab Results 09/27/22 09/27/22 09/27/22 Range/Units 18:40 18:40 18:40 WBC 7.43 (4.8-10.8) K/ul RBC 4.34 (4.20-5.40) M/uL Hgb 12.9 (12.0-16.0) g/dl Hct 38.8 (37.0-47.0) % MCV 89.4 (80.0-100.0) fL MCH 29.7 (25.0-34.0) pg MCHC 33.2 (32.0-36.0) g/dL RDW Std Deviation 45.5 (36.4-46.3) fL RDW Coeff of Josh 13.9 (11.5-14.5) % Plt Count 190 (130-400) K/uL MPV 10.1 (9.4-12.4) fL Immature Gran % (Auto) 0.4 % Neut % (Auto) 48.6 % Lymph % (Auto) 43.2 % Maverick % (Auto) 6.1 % Eos % (Auto) 0.9 % Baso % (Auto) 0.8 % Neut # (Auto) 3.61 (1.40-6.50) K/uL Lymph # (Auto) 3.21 (1.2-3.4) K/uL Maverick # (Auto) 0.45 (0.11-0.59) K/uL Eos # (Auto) 0.07 (0-0.50) K/uL Baso # (Auto) 0.06 (0-0.2) K/uL Immature Gran # (Auto) 0.03 (0.01-0.20) K/uL Sodium 144 (136-145) mmol/L Potassium 3.3 L (3.5-5.1) mmol/L Chloride 114 H (98-107) mmol/L Carbon Dioxide 21 (21-32) mmol/L Anion Gap 9 (3-11) BUN 11 (6-23) mg/dl Creatinine 0.75 (0.6-1.2) mg/dl Est Cr Clr Drug Dosing 85.2 ml/min Est GFR ( Amer) 111.6 ml/min Est GFR (Non-Af Amer) 96.3 ml/min BUN/Creatinine Ratio 14.7 (10-20) Glucose 93 (70-99(Fasting)) mg/dl Calcium 8.0 L (8.6-10.3) mg/dl Magnesium 2.0 (1.7-2.4) mg/dl Total Bilirubin 0.4 (0.2-1.0) mg/dl AST 39 (13-39) U/L ALT 24 (7-52) U/L Alkaline Phosphatase 88 (34-104) U/L Troponin I High Sens 2.6 (0-14) pg/ml Total Protein 7.3 (6.0-8.3) gm/dl Albumin 4.1 (3.4-5.0) gm/dl Globulin 3.2 (2.5-4.0) gm/dl Albumin/Globulin Ratio 1.3 (0.9-2) TSH 2.621 (0.300-4.500) uIu/ml HCG, Qual (Negative) Salicylates (3.0-30) mg/dl Acetaminophen (10-30) ug/ml Ethyl Alcohol mg/dL (<10.0) mg/dl SARS-CoV-2, RNA, NAAT (NEGATIVE) 09/27/22 09/27/22 09/27/22 Range/Units 18:40 18:40 18:46 WBC (4.8-10.8) K/ul RBC (4.20-5.40) M/uL Hgb (12.0-16.0) g/dl Hct (37.0-47.0) % MCV (80.0-100.0) fL MCH (25.0-34.0) pg MCHC (32.0-36.0) g/dL RDW Std Deviation (36.4-46.3) fL RDW Coeff of Josh (11.5-14.5) % Plt Count (130-400) K/uL MPV (9.4-12.4) fL Immature Gran % (Auto) % Neut % (Auto) % Lymph % (Auto) % Maverick % (Auto) % Eos % (Auto) % Baso % (Auto) % Neut # (Auto) (1.40-6.50) K/uL Lymph # (Auto) (1.2-3.4) K/uL Maverick # (Auto) (0.11-0.59) K/uL Eos # (Auto) (0-0.50) K/uL Baso # (Auto) (0-0.2) K/uL Immature Gran # (Auto) (0.01-0.20) K/uL Sodium (136-145) mmol/L Potassium (3.5-5.1) mmol/L Chloride (98-107) mmol/L Carbon Dioxide (21-32) mmol/L Anion Gap (3-11) BUN (6-23) mg/dl Creatinine (0.6-1.2) mg/dl Est Cr Clr Drug Dosing ml/min Est GFR ( Amer) ml/min Est GFR (Non-Af Amer) ml/min BUN/Creatinine Ratio (10-20) Glucose (70-99(Fasting)) mg/dl Calcium (8.6-10.3) mg/dl Magnesium (1.7-2.4) mg/dl Total Bilirubin (0.2-1.0) mg/dl AST (13-39) U/L ALT (7-52) U/L Alkaline Phosphatase (34-104) U/L Troponin I High Sens (0-14) pg/ml Total Protein (6.0-8.3) gm/dl Albumin (3.4-5.0) gm/dl Globulin (2.5-4.0) gm/dl Albumin/Globulin Ratio (0.9-2) TSH (0.300-4.500) uIu/ml HCG, Qual Negative (Negative) Salicylates (3.0-30) mg/dl Acetaminophen (10-30) ug/ml Ethyl Alcohol mg/dL 371.3 H (<10.0) mg/dl SARS-CoV-2, RNA, NAAT NEGATIVE (NEGATIVE) 09/27/22 Range/Units 20:17 WBC (4.8-10.8) K/ul RBC (4.20-5.40) M/uL Hgb (12.0-16.0) g/dl Hct (37.0-47.0) % MCV (80.0-100.0) fL MCH (25.0-34.0) pg MCHC (32.0-36.0) g/dL RDW Std Deviation (36.4-46.3) fL RDW Coeff of Josh (11.5-14.5) % Plt Count (130-400) K/uL MPV (9.4-12.4) fL Immature Gran % (Auto) % Neut % (Auto) % Lymph % (Auto) % Maverick % (Auto) % Eos % (Auto) % Baso % (Auto) % Neut # (Auto) (1.40-6.50) K/uL Lymph # (Auto) (1.2-3.4) K/uL Maverick # (Auto) (0.11-0.59) K/uL Eos # (Auto) (0-0.50) K/uL Baso # (Auto) (0-0.2) K/uL Immature Gran # (Auto) (0.01-0.20) K/uL Sodium (136-145) mmol/L Potassium (3.5-5.1) mmol/L Chloride (98-107) mmol/L Carbon Dioxide (21-32) mmol/L Anion Gap (3-11) BUN (6-23) mg/dl Creatinine (0.6-1.2) mg/dl Est Cr Clr Drug Dosing ml/min Est GFR ( Amer) ml/min Est GFR (Non-Af Amer) ml/min BUN/Creatinine Ratio (10-20) Glucose (70-99(Fasting)) mg/dl Calcium (8.6-10.3) mg/dl Magnesium (1.7-2.4) mg/dl Total Bilirubin (0.2-1.0) mg/dl AST (13-39) U/L ALT (7-52) U/L Alkaline Phosphatase (34-104) U/L Troponin I High Sens (0-14) pg/ml Total Protein (6.0-8.3) gm/dl Albumin (3.4-5.0) gm/dl Globulin (2.5-4.0) gm/dl Albumin/Globulin Ratio (0.9-2) TSH (0.300-4.500) uIu/ml HCG, Qual (Negative) Salicylates < 3.0 L (3.0-30) mg/dl Acetaminophen 21 (10-30) ug/ml Ethyl Alcohol mg/dL (<10.0) mg/dl SARS-CoV-2, RNA, NAAT (NEGATIVE) Administered Medications Discontinued Medications Sodium Chloride (Nss) 500 mls @ 999 mls/hr IV .Q31M ESTELA Stop: 09/27/22 19:00 Last Infusion: 09/27/22 21:50 Dose: 0 mls/hr Documented By: Admin: 09/27/22 18:57 Dose: 999 mls/hr Documented By: Acetaminophen (Ofirmev) 1,000 mg in 100 mls @ 400 mls/hr IV NOW STA Stop: 09/27/22 18:41 Last Infusion: 09/27/22 19:31 Dose: 0 mls/hr Documented By: JOSE MW Admin: 09/27/22 18:57 Dose: 400 mls/hr Documented By: Thiamine HCl 100 mg/ Folic (Acid 1 mg/ Sodium Chloride) 1,001.2 mls @ 500 mls/hr IV .Q2H1M STA; Protocol Stop: 09/27/22 20:27 Last Infusion: 09/27/22 21:50 Dose: 0 mls/hr Documented By: Admin: 09/27/22 19:15 Dose: 500 mls/hr Documented By: JOSLYN Promethazine HCl (Phenergan) 12.5 mg in 50.5 mls @ 202 mls/hr IV NOW STA Stop: 09/27/22 21:54 Last Admin: 09/27/22 21:48 Dose: 202 mls/hr Documented By: QGV Morphine Sulfate (Morphine Sulfate 4 Mg/Ml 1 Ml Carp\\Vial) 4 mg IV NOW STA Stop: 09/27/22 20:23 Last Admin: 09/27/22 20:34 Dose: 4 mg Documented By: JOSLYN Multivitamins/Minerals (Cerovite Adv Formula Tab) 1 tab PO ONE STA Stop: 09/27/22 18:28 Last Admin: 09/27/22 18:57 Dose: 1 tab Documented By: Ondansetron HCl (Ondansetron Inj 2 Mg/Ml 2 Ml Vial) 4 mg IV NOW STA Stop: 09/27/22 18:28 Last Admin: 09/27/22 18:57 Dose: 4 mg Documented By: Ondansetron HCl (Ondansetron Inj 2 Mg/Ml 2 Ml Vial) 4 mg IV NOW STA Stop: 09/27/22 20:23 Last Admin: 09/27/22 20:34 Dose: 4 mg Documented By: JOSLYN Imaging Data Radiologist's Impression: Head CT 09/27/22 18:27 CT SCAN OF THE BRAIN WITHOUT IV CONTRAST CLINICAL HISTORY: Headache. Nausea and vomiting COMPARISON STUDY: CT of the brain dated 09/15/2022. TECHNIQUE: Unenhanced axial CT scan of the brain is performed from the vertex to the skull base. A dose lowering technique was utilized adhering to the principles of ALARA. CT DOSE: 547.75 mGy.cm FINDINGS: Brain parenchyma: The brain parenchyma is normal in appearance. There is no hemorrhage, mass effect, or evidence of acute territorial ischemia by CT criteria. Miramontes-white matter differentiation is preserved. No extra-axial fluid collection is seen. Ventricles, sulci, cisterns: Normal in configuration. Intracranial vasculature: The visualized intracranial vasculature at the skull base is normal in appearance. Calvarium: Unremarkable. Sinuses and mastoids: There is an air-fluid level in the left maxillary antrum. The remaining visualized paranasal sinuses are clear. The mastoid air cells are well pneumatized. Orbits: The bony orbits are grossly intact. IMPRESSION: No acute intracranial abnormality. ACT 112: Negative or not required by law. Electronically signed by: Zain Perez M.D. 09/27/2022 6:56 PM Discharge Plan Visit Data Chief Complaint: Headache ED Provider: Zain Sandra Discharge Problem: Headache, Vomiting, Alcohol abuse, Hypokalemia Patient Disposition: Admitted As Inpatient Condition: Fair Forms Stand Alone Forms: My [facility] [place] [employer] Prescriptions Prescriptions: No Action topiramate 50 mg tablet 50 mg PO BID Qty: 30 3RF rizatriptan 10 mg tablet See Rx Instructions PO .COMPLEX Qty: 14 0RF Rx Instructions: take 1 tab at onset of headache; if no relief may repeat 1 tab after at least 2 hrs; max = 3 tabs/24 hr PO gabapentin 600 mg tablet 600 mg PO TID 30 Days Qty: 90 2RF pantoprazole 40 mg tablet,delayed release (DR/EC) 40 mg PO DAILY Qty: 90 3RF sertraline 50 mg tablet 50 mg PO DAILY Qty: 30 3RF hydroxyzine HCl 50 mg tablet 50 mg PO BID Qty: 60 2RF polyethylene glycol 3350 [Miralax] 17 gram/dose powder 17 g PO DAILY Qty: 119 0RF Rx Instructions: not verified with [facility] as prescription, OTC lamotrigine [Lamictal] 25 mg tablet 25 mg PO BID buprenorphine-naloxone 8-2 mg tablet, sublingual 2 tab SUBLINGUAL DAILY Rx Instructions: Per [facility] dose is 2 tablets daily instead of one. ondansetron 4 mg tablet,disintegrating 4 mg PO Q8H PRN (Reason: nausea and vomiting) Qty: 20 0RF Referrals Referrals: Diogenes Foster DO [Primary Care Provider] -
[2022-09-27 18:56] LABS: Basophils # (auto) 0.06 K/uL (0-0.2); Basophils % (auto) 0.8 %; Eosinophils # (auto) 0.07 K/uL (0-0.50); Eosinophils % (auto) 0.9 %; Hematocrit (blood only) 38.8 % (37.0-47.0); Hemoglobin 12.9 g/dl (12.0-16.0); Immature Granulocytes # (auto) 0.03 K/uL (0.01-0.20); Immature Granulocytes % (auto) 0.4 %; Lymphocytes # (auto) 3.21 K/uL (1.2-3.4); Lymphocytes % (auto) 43.2 %; Mean Corpuscular Hemoglobin 29.7 pg (25.0-34.0); Mean Corpuscular Hgb Conc 33.2 g/dL (32.0-36.0); Mean Corpuscular Volume 89.4 fL (80.0-100.0); Mean Platelet Volume 10.1 fL (9.4-12.4); Monocytes # (auto) 0.45 K/uL (0.11-0.59); Monocytes % (auto) 6.1 %; Neutrophils # (auto) 3.61 K/uL (1.40-6.50); Neutrophils % (auto) 48.6 %; Platelet Count 190 K/uL (130-400); RDW Coefficient of Variation 13.9 % (11.5-14.5); RDW Standard Deviation 45.5 fL (36.4-46.3); Red Blood Count 4.34 M/uL (4.20-5.40); White Blood Count 7.43 K/ul (4.8-10.8)
--- NOTE | 2022-09-27 18:58 | CT Scan Report ---
CT SCAN OF THE BRAIN WITHOUT IV CONTRAST CLINICAL HISTORY: Headache. Nausea and vomiting COMPARISON STUDY: CT of the brain dated 09/15/2022. TECHNIQUE: Unenhanced axial CT scan of the brain is performed from the vertex to the skull base. A d ose lowering technique was utilized adhering to the principles of ALARA. CT DOSE: 547.75 mGy.cm FINDINGS: Brain parenchyma: The brain parenchyma is normal in appearance. There is no hemorrhage, mass effect, or evidence of acute territorial ischemia by CT criteria. Miramontes-white matter differentiation is preser tena. No extra-axial fluid collection is seen. Ventricles, sulci, cisterns: Normal in configuration. Intracranial vasculature: The visualized intracranial vasculature at the skull base is normal in appe arance. Calvarium: Unremarkable. Sinuses and mastoids: There is an air-fluid level in the left maxillary antrum. The remaining visuali zed paranasal sinuses are clear. The mastoid air cells are well pneumatized. Orbits: The bony orbits are grossly intact. IMPRESSION: No acute intracranial abnormality. ACT 112: Negative or not required by law. Electronically signed by: Zain Perez M.D. 09/27/2022 6:56 PM
[2022-09-27 19:13] LABS: Albumin Globulin Ratio 1.3 (0.9-2); Albumin Level 4.1 gm/dl (3.4-5.0); BUN Creatinine Ratio 14.7 (10-20); Bilirubin,Total 0.4 mg/dl (0.2-1.0); Creatinine Clr Calc Pharmacy 85.2 ml/min; Est GFR (African American) 111.6 ml/min; Est GFR (Non-African American) 96.3 ml/min; Globulin 3.2 gm/dl (2.5-4.0); Potassium 3.3 mmol/L (3.5-5.1); Total Protein 7.3 gm/dl (6.0-8.3)
[2022-09-27 19:19] LABS: Troponin I High Sensitivity 2.6 pg/ml (0-14)
[2022-09-27] MEDS ORDERED: MoRPHine SULFATE 4 MG/ML 1 ML CARP\\VIAL IV STA (20:22)
[2022-09-27 20:27] LABS: Pregnancy Test, Serum Negative (Negative)
[2022-09-27 20:50] LABS: Acetaminophen 21 ug/ml (10-30); Salicylate < 3.0 mg/dl (3.0-30)
[2022-09-27] MEDS ORDERED: POTASSIUM CHLORIDE / WTR 10 MEQ/100 ML PLCT IV ONE (20:51)
[2022-09-27] MEDS ORDERED: PROMETHAZINE 12.5 MG/50.5 ML BAG IV STA (21:40)
[2022-09-27] MEDS ORDERED: KETOROLAC TROMETHAMINE 15 MG/ML VIAL IV STA (21:57)
[2022-09-27] MEDS ORDERED: LORazepam 2 MG/1 ML VIAL IV STA (21:57)
--- NOTE | 2022-09-27 22:09 | History & Physical Report ---
Date of Service September 27, 2022 Assessment & Plan (1) Headache: Plan: Alcohol intoxication - AWSS protocol in place - Headache/Nausea improving - continued repletion thiamine/folate - LR @ 100mls/hr - will need to discuss her thoughts of treatment/rehab once she is more coherent - UDS pending Bradycardia - bradycardia to the 40s, possibly vaso-vagal - monitor on telemetry, replete electrolytes Hypokalemia - Potassium repleted Hypocalcemia - calcium repleted Opioid Use Disorder - continue Suboxone Anxiety/Depression - continue hydroxyzine, lamotrigine, sertraline Hx Seizure -continue on topiramate - continue gabapentin GERD - continue PPI (2) Vomiting: (3) Alcohol abuse: (4) Hypokalemia: (5) Alcohol intoxication: (6) GERD (gastroesophageal reflux disease): (7) Anxiety and depression: History of Present Illness Primary Care Provider: Diogenes Foster DO 46 year old female with a past medical history of opioid use, alcohol abuse and substance abuse, anxiety and depression, Hepatitis C, Gastroparesis. She had an appointment at her PCP office this afternoon and was thought to be intoxicated, concern for relapse. She complains of a headache, nauseas, vomiting and states that she has not been taking her medications consistently. Of note she was diagnosed with a concussion 2 weeks ago. At present patient is somewhat somn olent so history was limited. She states that yesterday she drank 15-16 miniature alcohol bottles (air plane bottles). States that she didn't have any alcohol today. Still complaining of frontal headache, but improved from presentation. Nausea also improved. ED Course significant for: ETOH level= 371.3, K= 3.3, Brain CT negative. Had an episode of bradycardia to the 40s. Was given Toradol, acetaminophen, morphine, promethazine, Zofran and Ativan for headache. Also given thiamine, folic acid. 500mL NSS. Potassium repleted. UDS, UA pending Allergies Allergy/AdvReac Type Severity Reaction Status Date / Time latex Allergy Mild CRACKS SKIN Verified 09/27/22 15:34 Home Medications Medication Instructions Recorded Confirmed Type buprenorphine 8 mg-naloxone 2 mg 2 tab sublingual DAILY 05/30/22 09/27/22 History sublingual tablet hydroxyzine HCl 50 mg tablet 50 mg PO BID #60 tabs 07/10/22 09/27/22 Rx polyethylene glycol 3350 17 17 g PO DAILY #119 grams 07/10/22 09/27/22 Rx gram/dose oral powder (Miralax) sertraline 50 mg tablet 50 mg PO DAILY #30 tabs 07/10/22 09/27/22 Rx gabapentin 600 mg tablet 600 mg PO TID 30 days #90 tabs 07/27/22 09/27/22 Rx pantoprazole 40 mg tablet,delayed 40 mg PO DAILY #90 tabs 07/27/22 09/27/22 Rx release topiramate 50 mg tablet 50 mg PO BID #30 tabs 08/03/22 09/27/22 Rx ondansetron 4 mg disintegrating 4 mg PO Q8H PRN nausea and 08/28/22 09/27/22 Rx tablet vomiting #20 tabs rizatriptan 10 mg tablet See Rx Instructions PO .COMPLEX 09/18/22 09/27/22 Rx #14 tabs lamotrigine 25 mg tablet (Lamictal) 25 mg PO BID 09/27/22 09/27/22 History 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 History of stomach ulcers HPV (human papilloma virus) infection Jaw clicking NO LOCKING Migraine Spinal stenosis Surgical History H/O colonoscopy History of esophagogastroduodenoscopy (EGD) Hx laparoscopic cholecystectomy (01/27/20) Family History Grandmother (Maternal) Breast cancer Throat cancer Grandfather (Maternal) Diabetes Heart disease Hypertension Myocardial infarction Uncle Skin cancer Aunt Breast cancer Grandmother (Paternal) Breast cancer Other No family history of adverse response to anesthesia Denies family history of Ovarian cancer Prostate cancer Colorectal cancer Social History Smoking Status: Current every day smoker Tobacco Type: E-cigarettes / Vaping packs per day: 1; Cigarettes Per Day: 2 CIG DAILY/VAPE "A LITTLE BIT"; Second Hand Exposure: No; Do You Dip or Chew Tobacco: No; Tobacco Cessation Education Requested by Patient: No Hx Alcohol Use: Yes Alcohol type: beer Alcohol Intake Frequency: 4 or More x per/Week Hx Substance Use: Yes Substance Use Type Other:: STOPPED USING OPOIDS 3 YRS AGO Preferred Language: Kinyarwanda Communication Ability: Effective Visual Impairment: No Limitations Hearing Ability: Normal Ornamental Metal Worker Required: No Beliefs That Will Affect Care: None marital status: Single Current Living Situation: Family Current Living Situation Comment: with son 17 year old 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 [employer] How many Children do You have: 1 Other Information That Helps Us Care for You: No Feels Safe at Home: Yes Safety Concerns: Feels Safe At This Time Childhood Exposure to Second-Hand Smoke: Yes Diet: regular Dental Care, Regularly: Yes Physical Activity Frequency: 5-6 Times per Week Seatbelt Use: sometimes Sunscreen Use: Yes Gender Identity: Male Assistive Devices: None Review of Systems Review of Systems: As per above Physical Exam Physical Exam: Constitutional: well-appearing, no acute distress HEENT: NCAT, no conjunctival injection, PERRLA CV: regular rhythm, no murmur appreciated, extremities well-perfused, no LE edema Resp: CTABL, no wheezes/rales/rhonchi appreciated, no increased work of breathing GI: soft, nondistended, nontender, BS normoactive MSK: no gross deformities appreciated Skin: warm, dry, no rash appreciated Neuro: alert, oriented, no focal neurologic deficit appreciated, no tremor Results & Data Results & Data Vital Signs (Past 12 Hours) Vital Signs Temp Pulse Pulse Resp BP BP Pulse Ox 09/27/22 21:35 40 L 09/27/22 21:28 100 H 09/27/22 20:11 68 16 98 09/27/22 20:11 36.7 C 68 16 125/91 98 09/27/22 18:32 37.0 C 75 15 125/91 94 O2 Del Method 09/27/22 21:35 09/27/22 21:28 09/27/22 20:11 Room Air 09/27/22 20:11 Room Air 09/27/22 18:32 Room Air Supervising Physician Co-Signing Physician Notes Attending addendum: I have physically seen this patient, have supervised the medical residents activities, and agree with the H&P unless as otherwise noted. Assessment and Plan: Alcohol intoxication/alcohol abuse disorder- AWSS protocol with IV Ativan Thiamine and folate supplementation LR at 100 mils per hour Check urine drug screen Cessation counseling Headache- CT scan head negative for bleed Optimize calcium of 8.0 and potassium of 3.3 with IV replacement Alcohol level 371.3 likely contributing to headache along with dehydration repeat laboratories in a.m. Bradycardia- Brief decreased to the 40s, is likely vasovagal Follow on telemetry Remaining orders and notations as noted Resident Activity Tracking Resident Involvement: Resident Care Provided Care Provided: Adult Hospital Medicine (1) Headache Headache chronicity pattern: acute headache Headache type: unspecified Intractability: intractable Qualified Code(s): R51.9 - Headache, unspecified (2) Vomiting Nausea presence: with nausea Vomiting type: unspecified Qualified Code(s): R11.2 - Nausea with vomiting, unspecified
[2022-09-27] MEDS ORDERED: Ativan IV Alcohol Withdrawal--Active Protocol IV PRN (22:45)
[2022-09-27] MEDS ORDERED: LORazepam 2 MG/1 ML VIAL IV PRN ×2 (22:45)
[2022-09-27] MEDS ORDERED: CALCIUM CHLORIDE 10% 1,000 MG in DEXTROSE 5% 50 ML IV STA (23:27)
[2022-09-27] MEDS ORDERED: POLYETHYLENE (MIRALAX) 17 GM PACK PO PRN (23:27)
[2022-09-27] MEDS: POTASSIUM CHLORIDE / WTR 10 MEQ/100 ML PLCT IV SCH (23:37)
[2022-09-27] MEDS: LACTATED RINGER'S 1,000 ML IV SCH (23:37)
[2022-09-28] MEDS: POTASSIUM CHLORIDE / WTR 10 MEQ/100 ML PLCT IV SCH (01:47)
[2022-09-28] MEDS: LORazepam 2 MG/1 ML VIAL IV PRN ×2 (01:53→09:03)
[2022-09-28 01:57] LABS: Appearance Urine Clear (Clear); Bilirubin Urine Negative (Negative); Blood Urine Negative (Negative); Color Urine Yellow; Glucose Urine UA Negative (Negative); Ketones Urine Negative (Negative); Leukocyte Esterase Urine Negative (Negative); Nitrite Urine Negative (Negative); Protein Urine Negative (Negative); Specific Gravity Urine 1.018 (1.000-1.030); Urobilinogen Urine Negative (Negative); pH Urine 5.5 (4.5-7.5)
[2022-09-28 03:20] LABS: Amphetamines+Metham, Urine Neg (Neg); Barbiturates, Urine Neg (Neg); Benzodiazepine, Urine Neg (Neg); Cocaine, Urine Neg (Neg); MDMA (Ecstacy), Urine Neg (Neg); Methadone, Urine Neg (Neg); Opiate, Urine Pos (Neg); Phencyclidine, Urine Neg (Neg)
[2022-09-28 06:38] LABS: Basophils # (auto) 0.06 K/uL (0-0.2); Basophils % (auto) 1.1 %; Eosinophils # (auto) 0.04 K/uL (0-0.50); Eosinophils % (auto) 0.7 %; Hemoglobin 11.7 g/dl (12.0-16.0); Immature Granulocytes # (auto) 0.02 K/uL (0.01-0.20); Immature Granulocytes % (auto) 0.4 %; Lymphocytes # (auto) 2.03 K/uL (1.2-3.4); Lymphocytes % (auto) 36.2 %; Mean Corpuscular Hemoglobin 29.5 pg (25.0-34.0); Mean Corpuscular Hgb Conc 33.4 g/dL (32.0-36.0); Mean Corpuscular Volume 88.4 fL (80.0-100.0); Mean Platelet Volume 10.4 fL (9.4-12.4); Monocytes # (auto) 0.38 K/uL (0.11-0.59); Monocytes % (auto) 6.8 %; Neutrophils # (auto) 3.08 K/uL (1.40-6.50); Neutrophils % (auto) 54.8 %; Platelet Count 154 K/uL (130-400); RDW Coefficient of Variation 14.1 % (11.5-14.5); RDW Standard Deviation 45.5 fL (36.4-46.3); Red Blood Count 3.96 M/uL (4.20-5.40); White Blood Count 5.61 K/ul (4.8-10.8)
[2022-09-28 07:04] LABS: Albumin Globulin Ratio 1.4 (0.9-2); Albumin Level 3.3 gm/dl (3.4-5.0); Bilirubin,Total 0.7 mg/dl (0.2-1.0); Calcium 8.3 mg/dl (8.6-10.3); Creatinine Clr Calc Pharmacy 98.3 ml/min; Est GFR (African American) 124.3 ml/min; Est GFR (Non-African American) 107.2 ml/min; Globulin 2.4 gm/dl (2.5-4.0); Magnesium 1.7 mg/dl (1.7-2.4); Potassium 3.8 mmol/L (3.5-5.1); Total Protein 5.7 gm/dl (6.0-8.3)
[2022-09-28] MEDS: GABAPENTIN 600 MG TAB PO SCH ×3 (08:52→20:28)
[2022-09-28] MEDS: lamoTRIgine 25 MG TAB PO SCH ×2 (08:52→20:28)
[2022-09-28] MEDS: FOLIC ACID 1 MG TAB PO SCH (08:52)
[2022-09-28] MEDS: hydrOXYzine HCl 25 MG TAB PO SCH ×2 (08:52→20:27)
[2022-09-28] MEDS: SERTRALINE HCL 50 MG TABLET PO SCH (08:53)
[2022-09-28] MEDS: PANTOprazole 40 MG TAB PO SCH (08:53)
[2022-09-28] MEDS: TOPIRAMATE 50 MG TAB PO SCH ×2 (08:53→20:27)
[2022-09-28] MEDS ORDERED: THIAMINE HCL 100 MG TAB PO SCH (09:00)
[2022-09-28] MEDS: BUPRENORPHINE/NALOXONE 8/2 MG TAB SL SCH (09:04)
[2022-09-28] MEDS: LACTATED RINGER'S 1,000 ML IV SCH ×2 (09:04→19:13)
[2022-09-28] MEDS ORDERED: MECLIZINE 12.5 MG TAB PO PRN (15:04)
--- NOTE | 2022-09-28 15:05 | Hospitalist Progress Note ---
Date of Service September 28, 2022 Assessment & Plan (1) Alcohol intoxication: Plan: at ER presentation resolved, now with etoh withdrawal (2) Alcohol withdrawal: Plan: presented with etoh intoxication (blood etoh level nearly 400 at ER presentation) now with likely withdrawal AWSS ativan prn based on symptoms/scoring she already takes gabapentin 600mg TID chronically (3) Headache: Plan: 2nd to concussion in the setting of known migraines (4) Concussion: Plan: 2 weeks ago had head injury daily headaches since then CT head x 2 in the last 2 weeks negative for ICH, fracture, etc. alcohol will make her concussion symptoms worse treat the headaches consider MRI brain if headaches worsen but likely to be normal (5) History of migraine headaches: Plan: long-standing dating back to teenage years takes triptans prn at home will order imitrex 50mg q2h prn consider increase in topamax prophylaxis (6) Vomiting: Plan: likely 2nd to etoh intoxication cannot rule out emesis from migraine cannot rule out gastritis as cause cannot rule out n/v from concussion vomiting has stopped advance diet (7) Alcohol abuse: Plan: heavy etoh usage on daily basis h/o etoh withdrawal she is interested in outpatient counseling increase thiamine to 200mg BID folic acid supplementation (8) Hypokalemia: Plan: replace repeat BMP am mag level wnl today (9) GERD (gastroesophageal reflux disease): Plan: PPI (10) Anxiety and depression: Plan: cont atarax BID cont zoloft cont lamictal 25mg BID cont topamax (11) Hepatitis C: Plan: per history has not had Rx she would need at least 6 months of sobriety to be eligible (12) Chronic narcotic use: Plan: suboxone daily Admission and Anticipated Discharge Date Admission Date: September 27, 2022 Subjective patient reports that about 2 weeks ago she was intoxicated and hit her head (frontal region) on the bathroom wall she also had self-inflicted head banging?? since the trauma to her head in the bathroom she has had daily frontal headaches associated with nausea and occasional vomiting has felt poorly overall during the last 2 weeks she admits to heavy etoh consumption interested in outpatient counseling for her drinking she does feel like she is withdrawing from etoh the last time she went through withdrawal she reports it lasted about 3 days she would like to try regular food Review of Systems Review of Systems: gen - no fevers cv - no chest pain pulm - no dyspnea GI - mild abd discomfort RUQ; N/V +; no diarrhea psych - feels anxious neuro - tremors Physical Exam Physical Exam: gen - looks tired, sickly, but NAD eyes - mild horizontal nystagmus mouth - MMM neck - no JVD heart - RRR, s1 s2, no murmur lungs - CTA b/l abd - liver edge palpable/enlarged/tender; BS+; ND, soft otherwise ext - no edema, pulses 2+ b/l psych - sleepy at times, but oriented x 3 neuro - minimal tremors noted Results & Data Results & Data Vital Signs (Past 12 Hours) Vital Signs Temp Pulse Pulse Resp BP Pulse Ox O2 Del Method 09/28/22 08:00 70 09/28/22 10:53 36.6 C 81 19 138/87 97 Room Air 09/28/22 07:10 36.4 C L 76 20 143/81 H 95 Room Air 09/28/22 06:23 36.7 C 66 18 132/84 98 Room Air 09/28/22 03:09 64 Laboratory Results Laboratory Results - last 24 hr 09/28/22 09/28/22 05:51 05:51 WBC 5.61 RBC 3.96 L Hgb 11.7 L Hct 35.0 L MCV 88.4 MCH 29.5 MCHC 33.4 RDW Std Deviation 45.5 RDW Coeff of Josh 14.1 Plt Count 154 MPV 10.4 Immature Gran % (Auto) 0.4 Neut % (Auto) 54.8 Lymph % (Auto) 36.2 [place] % (Auto) 6.8 Eos % (Auto) 0.7 Baso % (Auto) 1.1 Neut # (Auto) 3.08 Lymph # (Auto) 2.03 [place] # (Auto) 0.38 Eos # (Auto) 0.04 Baso # (Auto) 0.06 Immature Gran # (Auto) 0.02 Sodium 143 Potassium 3.8 Chloride 117 H Carbon Dioxide 18 L Anion Gap 8 BUN 13 Creatinine 0.65 Est Cr Clr Drug Dosing 98.3 Est GFR ( Amer) 124.3 Est GFR (Non-Af Amer) 107.2 BUN/Creatinine Ratio 20.0 Glucose 83 Calcium 8.3 L Magnesium 1.7 Total Bilirubin 0.7 AST 27 ALT 19 Alkaline Phosphatase 72 Total Protein 5.7 L D Albumin 3.3 L Globulin 2.4 L Albumin/Globulin Ratio 1.4 PG Care Time/CCT Total # of Minutes Spent Total Time Spent with Patient: Total time spent is greater than 50% in coordination of care (as documented) at patient's floor/unit and/or counseling patient: Coding Level of Care Code 54832 SUB INP/OBS CARE 2/35MIN Diagnoses Alcohol intoxication F10.929 Alcohol withdrawal F10.939 Headache R51.9 Headache chronicity pattern: acute headache Headache type: unspecified Intractability: intractable Concussion S06.0XAA History of migraine headaches Z86.69 Vomiting R11.2 Nausea presence: with nausea Vomiting type: unspecified Alcohol abuse F10.10 Hypokalemia E87.6 GERD (gastroesophageal reflux disease) K21.9 Anxiety and depression F41.9; F32.A Hepatitis C B19.20 Chronic narcotic use F11.90 (3) Headache Headache chronicity pattern: acute headache Headache type: unspecified Intractability: intractable Qualified Code(s): R51.9 - Headache, unspecified (6) Vomiting Nausea presence: with nausea Vomiting type: unspecified Qualified Code(s): R11.2 - Nausea with vomiting, unspecified
[2022-09-28] MEDS: FAMOTIDINE 20 MG in SYRINGE 3 ML IV SCH (16:23)
[2022-09-28] MEDS: THIAMINE HCL 100 MG TAB PO SCH (20:27)
[2022-09-28] MEDS: ONDANSETRON INJ 2 MG/ML 2 ML VIAL IV PRN (20:33)
[2022-09-28] MEDS: SUMAtriptan succinate 50 MG TAB PO PRN (21:44)
--- NOTE | 2022-09-28 23:17 | Electrocardiogram Report ---
Test Reason : Blood Pressure : / mmHG Vent. Rate : 070 BPM Atrial Rate : 070 BPM P-R Int : 156 ms QRS Dur : 094 ms QT Int : 400 ms P-R-T Axes : 034 018 050 degrees QTc Int : 432 ms Normal sinus rhythm Cannot rule out Anterior infarct , age undetermined Abnormal ECG When compared with ECG of 30-MAY-2022 12:22, Vent. rate has decreased BY 38 BPM Confirmed by Garfield Fang ([id number]) on 09/28/2022 11:16:58 PM Referred By: REFERRED SELF Confirmed By:Garfield Fang
--- NOTE | 2022-09-28 23:45 | Billing Data ---
Date of Service September 28, 2022 Coding Level of Care Code 30527 INT INP/OBS CARE
[2022-09-29] MEDS: LORazepam 2 MG/1 ML VIAL IV PRN ×3 (00:50→10:25)
[2022-09-29] MEDS: FAMOTIDINE 20 MG in SYRINGE 3 ML IV SCH ×2 (03:11→16:31)
[2022-09-29] MEDS: LACTATED RINGER'S 1,000 ML IV SCH (05:04)
[2022-09-29] MEDS: ONDANSETRON INJ 2 MG/ML 2 ML VIAL IV PRN (05:36)
[2022-09-29] MEDS: SUMAtriptan succinate 50 MG TAB PO PRN ×2 (05:36→10:25)
[2022-09-29] MEDS: BUPRENORPHINE/NALOXONE 8/2 MG TAB SL SCH (08:22)
[2022-09-29] MEDS: PANTOprazole 40 MG TAB PO SCH (08:22)
[2022-09-29] MEDS: TOPIRAMATE 50 MG TAB PO SCH (08:22)
[2022-09-29 08:23] LABS: BUN Creatinine Ratio 10.8 (10-20); Calcium 8.6 mg/dl (8.6-10.3); Creatinine Clr Calc Pharmacy 83.3 ml/min; Est GFR (African American) 98.7 ml/min; Est GFR (Non-African American) 85.2 ml/min; Potassium 3.4 mmol/L (3.5-5.1)
[2022-09-29] MEDS: SERTRALINE HCL 50 MG TABLET PO SCH (08:23)
[2022-09-29] MEDS: hydrOXYzine HCl 25 MG TAB PO SCH (08:23)
[2022-09-29] MEDS: THIAMINE HCL 100 MG TAB PO SCH (08:23)
[2022-09-29] MEDS: FOLIC ACID 1 MG TAB PO SCH (08:23)
[2022-09-29] MEDS: GABAPENTIN 600 MG TAB PO SCH ×2 (08:23→13:05)
[2022-09-29] MEDS: lamoTRIgine 25 MG TAB PO SCH (08:24)
[2022-09-29] MEDS ORDERED: POTASSIUM CHLORIDE CRTAB 20 MEQ TABCR PO SCH (09:00)
--- NOTE | 2022-09-29 15:16 | Discharge Summary ---
Date of Service September 29, 2022 Admission HPI Per Admitting Provider 46 year old female with a past medical history of opioid use, alcohol abuse and substance abuse, anxiety and depression, Hepatitis C, Gastroparesis. She had an appointment at her PCP office this afternoon and was thought to be intoxicated, concern for relapse. She complains of a headache, nauseas, vomiting and states that she has not been taking her medications consistently. Of note she was diagnosed with a concussion 2 weeks ago. At present patient is somewhat somnolent so history was limited. She states that yesterday she drank 15-16 miniature alcohol bottles (air plane bottles). States that she didn't have any alcohol today. Still complaining of frontal headache, but improved from presentation. Nausea also improved. ED Course significant for: ETOH level= 371.3, K= 3.3, Brain CT negative. Had an episode of bradycardia to the 40s. Was given Toradol, acetaminophen, morphine, promethazine, Zofran and Ativan for headache. Also given thiamine, folic acid. 500mL NSS. Potassium repleted. UDS, UA pending Discharge Exam gen - looks tired, sickly, but NAD eyes - mild horizontal nystagmus mouth - MMM neck - no JVD heart - RRR, s1 s2, no murmur lungs - CTA b/l abd - liver edge palpable/enlarged/tender; BS+; ND, soft otherwise ext - no edema, pulses 2+ b/l psych - sleepy at times, but oriented x 3 neuro - minimal tremors noted Discharge Data Allergies Allergy/AdvReac Type Severity Reaction Status Date / Time latex Allergy Mild CRACKS SKIN Verified 09/27/22 15:34 Consultations 09/27/22 22:00 ED Decision to Admit Stat Ordered Studies 09/27/22 18:27 CT head/brain wo con Stat Hospital Course (1) Alcohol intoxication: at ER presentation resolved, now with etoh withdrawal (2) Alcohol withdrawal: presented with etoh intoxication (blood etoh level nearly 400 at ER presentation) now with likely withdrawal AWSS ativan prn based on symptoms/scoring she already takes gabapentin 600mg TID chronically (3) Headache: 2nd to concussion in the setting of known migraines (4) Concussion: 2 weeks ago had head injury daily headaches since then CT head x 2 in the last 2 weeks negative for ICH, fracture, etc. alcohol will make her concussion symptoms worse treat the headaches consider MRI brain if headaches worsen but likely to be normal (5) History of migraine headaches: long-standing dating back to teenage years takes triptans prn at home will order imitrex 50mg q2h prn consider increase in topamax prophylaxis (6) Vomiting: likely 2nd to etoh intoxication cannot rule out emesis from migraine cannot rule out gastritis as cause cannot rule out n/v from concussion vomiting has stopped advance diet (7) Alcohol abuse: heavy etoh usage on daily basis h/o etoh withdrawal she is interested in outpatient counseling increase thiamine to 200mg BID folic acid supplementation (8) Hypokalemia: replace repeat BMP am mag level wnl today (9) GERD (gastroesophageal reflux disease): PPI (10) Anxiety and depression: cont atarax BID cont zoloft cont lamictal 25mg BID cont topamax (11) Hepatitis C: per history has not had Rx she would need at least 6 months of sobriety to be eligible (12) Chronic narcotic use: suboxone daily Discharge Plan Discharge Items Patient Disposition: Home - Self-Care Reason For Visit: ALCOHOL INTOXICATION Discharge Diagnosis: 1. alcohol intoxication 2. recent concussion 3. migraine headaches 4. low potassium Activity: Resume your previous activity Non-emergency contact: Primary Care Provider Call non-emergency contact if: you have any medication questions, your symptoms worsen and you have a fever Follow-up/Referrals: Diogenes Foster DO [Primary Care Provider] - (1 week) Diet: Regular Addtl Attending Provider Instructions: Ms Jenkins, You were hospitalized for alcohol intoxication, nausea, vomiting, and headaches. You improved with IV fluids, headache medication, acid reducers, and supportive care. The headaches are likely from a combination of your recent concussion and migraines. CT head was normal. Please see handouts on concussion. Recommendations - 1. For headache you may use your rizatriptan 10mg every 2 hours as needed, max 2 doses in 24 hours. 2. For nausea or vomiting - ondansetron 4mg every 8 hours as needed. 3. For anxiety - buspirone 5mg every 8 hours as needed. 4. Your potassium was mildly low while here due to vomiting, etc. Please take a potassium supplement once daily for 3 days. You can start this today. 5. Please call your dentist Saturday morning about the left-sided jaw pain that may be from "TMJ syndrome." See handout on TMJ. 6. Please follow-up with your family doctor within 1 week to have repeat blood work (potassium check, liver functions, etc). 7. Consider [facility] ([facility]) for your medication management of your anxiety, etc. 8. Take it easy the next few days to help your concussion. Your brain needs rest and healing. Avoid excessive TV watching, tablets/devices/phones, reading, loud noises, etc. Return to [facility] if - * you have fevers over 100 degrees * you have severe headaches * you have nausea that doesn't go away with medication * you have abdominal pains or vomiting * any other concerns Pending Studies at Discharge: No Stand-Alone Forms: [facility], Work/School Release, Smoking Cessation Medications and DC Order Prescriptions: New potassium chloride 20 mEq Tablet,Er Particles/Crystals 20 meq PO DAILY 3 Days Qty: 3 0RF buspirone 5 mg tablet 5 mg PO TID PRN (Reason: anxiety) Qty: 20 0RF Continued topiramate 50 mg tablet 50 mg PO BID Qty: 30 3RF gabapentin 600 mg tablet 600 mg PO TID 30 Days Qty: 90 2RF pantoprazole 40 mg tablet,delayed release (DR/EC) 40 mg PO DAILY Qty: 90 3RF sertraline 50 mg tablet 50 mg PO DAILY Qty: 30 3RF hydroxyzine HCl 50 mg tablet 50 mg PO BID Qty: 60 2RF polyethylene glycol 3350 [Miralax] 17 gram/dose powder 17 g PO DAILY Qty: 119 0RF Rx Instructions: not verified with [facility] as prescription, OTC lamotrigine [Lamictal] 25 mg tablet 25 mg PO BID ondansetron 4 mg tablet,disintegrating 4 mg PO Q8H PRN (Reason: nausea and vomiting) Qty: 10 0RF buprenorphine-naloxone 8-2 mg tablet, sublingual 2 tab SUBLINGUAL DAILY Rx Instructions: Per [facility] dose is 2 tablets daily instead of one. Changed rizatriptan 10 mg tablet See Rx Instructions PO .COMPLEX Qty: 14 0RF Rx Instructions: take 1 tab at onset of headache; if no relief may repeat 1 tab after at least 2 hrs; max = 2 tabs/24 hours Discharge Orders: Discharge Order (Routine); Ordered 09/29/22 Ordered By: Felipe Castro/Other Patient Handouts: Coping with Concussion, ED Concussion, ED TMJ Syndrome Admission Data Admit Date/Time: 09/27/22 22:39 Attending Provider: Felipe Solis Admit Provider: Elva Fernando Primary Care Provider: Diogenes Foster Other Providers: Hood Mena Coding Diagnoses Alcohol intoxication F10.929 Alcohol withdrawal F10.939 Headache R51.9 Headache chronicity pattern: acute headache Headache type: unspecified Intractability: intractable Concussion S06.0XAA History of migraine headaches Z86.69 Vomiting R11.2 Nausea presence: with nausea Vomiting type: unspecified Alcohol abuse F10.10 Hypokalemia E87.6 GERD (gastroesophageal reflux disease) K21.9 Anxiety and depression F41.9; F32.A Hepatitis C B19.20 Chronic narcotic use F11.90
[2022-09-30 11:18] LABS: Codeine Urine NEGATIVE ng/mL (<50); Hydrocodone Urine NEGATIVE ng/mL (<50); Hydromor Urine NEGATIVE ng/mL (<50); Marijuana Quant, GCMS Urine 663 ng/mL (<5); Morphine Urine 3710 ng/mL (<50); Norhydrocodone Conf Ur NEGATIVE ng/mL (<50); Noroxycodone Urine NEGATIVE ng/mL (<50); Oxycodone Urine NEGATIVE ng/mL (<50); Oxymorph Urine NEGATIVE ng/mL (<50)
== END 2022-09-29 16:10 | disposition home or self-care (01) | DRG 897 ==
LOC: ED 18:07 → EDINP 22:39 → SUATTDRO 22:39 → 2S 09-28 02:00

== ENCOUNTER 2025-02-14 20:00 | Observation (INO) ==
--- NOTE | 2025-02-14 20:42 | Emergency Department Note ---
History of Present Illness General Chief complaint: Vomiting Stated complaint: N/V, SOB Time Seen by Provider: 02/14/25 20:28 History of Present Illness Provider Complaint: + nausea and + vomiting Onset (ago): hour(s) 2 Description of Vomiting: + food contents and + bilious; no blood-streaked, no bloody or no coffee grounds Associated Abdominal Pain: Yes Location of pain: + diffuse Quality: + stabbing and + sharp Pain Consistency: + constant Relieved By: + none Exacerbated By: + vomiting Context: no alcohol abuse, no trauma, no NSAID use, no smoking or no marijuana use Associated symptoms: + shortness of breath; no chest pain, no cough or no dysuria HPI Narrative: Patient reports she has not used any drugs or alcohol in the last 2 years. 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)) gabapentin 600 mg tablet 600 mg PO TID 01/30/24 02/14/25 History ibuprofen 200 mg tablet (Advil) 800 mg (4 x 200 mg) PO Q8H PRN 01/30/24 02/14/25 Rx pain #90 tabs lamotrigine 25 mg tablet (Lamictal) 200 mg PO BID 01/30/24 02/14/25 History multivitamin 1 tab PO DAILY #90 tabs 01/30/24 02/14/25 Rx pantoprazole 40 mg tablet,delayed 40 mg PO DAILY #90 tabs 01/30/24 02/14/25 Rx release rimegepant 75 mg disintegrating 75 mg PO Q OTHER DAY PRN migraine 04/06/24 02/14/25 Rx tablet (Nurtec ODT) headache #8 tabs bupropion HCl 200 mg tablet,12 hr 200 mg PO BID 05/28/24 02/14/25 History sustained-release (Wellbutrin SR) azelastine 137 mcg (0.1 %) nasal 2 spray intranasal BID #30 mL 12/08/24 02/14/25 Rx spray citalopram 40 mg tablet (Celexa) 40 mg PO DAILY 12/08/24 02/14/25 History folic acid 1 mg tablet 1 mg PO DAILY #90 tabs 12/08/24 02/14/25 Rx ropinirole 0.5 mg tablet 0.5 mg PO BID PRN restless leg 12/08/24 02/14/25 Rx syndrome #180 tabs tirzepatide (weight loss) 2.5 2.5 mg subcut WK 12/08/24 02/14/25 History mg/0.5 mL subcutaneous solution (Zepbound) propranolol 60 mg capsule,24 60 mg PO DAILY 30 days #30 caps 01/06/25 02/14/25 Rx hr,extended release cyclobenzaprine 5 mg tablet See Rx Instructions .Route 01/19/25 02/14/25 Rx .COMPLEX #30 tabs rizatriptan 10 mg tablet 10 mg PO ONCE PRN Migraine Headache 02/14/25 02/14/25 History Allergies Allergy/AdvReac Type Severity Reaction Status Date / Time latex Allergy Mild CRACKS SKIN Verified 12/08/24 11:15 No Known Drug Allergies Allergy Verified 12/08/24 11:15 Past Med/Surg History Problem List (Updated 02/14/25 @ 23:34 by Javier Terry MD) Hypothermia (Acute) Hypokalemia (Acute) High anion gap metabolic acidosis Intractable vomiting with nausea (Acute) Gastroenteritis Cannabis hyperemesis syndrome Acute dehydration Hypokalemia due to excessive gastrointestinal loss of potassium CMC arthritis Migraine with aura Acne vulgaris History of alcohol use disorder (Acute) Seizure (Acute) Gastroparesis ASCUS with positive high risk HPV History of opioid abuse (Acute) 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 Medical History Chronic narcotic use History of migraine headaches Concussion Hypokalemia Alcohol abuse Alcohol intoxication Alcohol dependence Alcoholism Hepatitis C Spinal stenosis GERD (gastroesophageal reflux disease) Jaw clicking NO LOCKING Anxiety and depression HPV (human papilloma virus) infection Hepatitis C NO TREATMENT Chronic back pain LOWER BACK/NECK PAIN Cholelithiasis History of stomach ulcers History of blood clots PE-5-6 YRS AGO-"SMOKER/ON DEPO SHOT-TREATED AT THE TIME WITH BLOOD THINNERS"- NO ISSUES SINCE History of back problems Surgical History Hx laparoscopic cholecystectomy (01/27/20) History of esophagogastroduodenoscopy (EGD) H/O colonoscopy 10/08/2023, repeat due in 10 years Family History Grandmother (Maternal) Breast cancer Throat cancer Grandfather (Maternal) Diabetes Heart disease Hypertension Myocardial infarction Uncle Skin cancer Aunt Breast cancer Grandmother (Paternal) Breast cancer Other No family history of adverse response to anesthesia Denies family history of Ovarian cancer Prostate cancer Colorectal cancer Social History Smoking Status: Current every day smoker Tobacco Type: E-cigarettes / Vaping Age Started Using Tobacco: 16; packs per day: 1; Cigarettes Per Day: 2 CIG DAILY/VAPE "A LITTLE BIT"; Second Hand Exposure: No; Do You Dip or Chew Tobacco: No; Hx Alcohol Use: Yes Alcohol type: beer Alcohol Intake Frequency: 4 or More x per/Week Hx Substance Use: Yes Substance Use Type Other:: STOPPED USING OPOIDS 3 YRS AGO Preferred Language: Vincentian Communication Ability: Effective Visual Impairment: No Limitations Hearing Ability: Normal Sieve Repairer Required: No Beliefs That Will Affect Care: None marital status: Single Current Living Situation: Family Current Living Situation Comment: with son 17 year old 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 How many Children do You have: 1 Feels Safe at Home: Yes Childhood Exposure to Second-Hand Smoke: Yes Diet: regular Dental Care, Regularly: Yes Physical Activity Frequency: 5-6 Times per Week Seatbelt Use: sometimes Sunscreen Use: Yes Gender Identity: Female Assistive Devices: None Physical Exam 2 Vital Signs: Vital Signs - 24 hr 02/14/25 20:06 02/14/25 20:08 02/14/25 21:09 Temperature 34.6 C L Temperature Source Rectal Pulse Rate 74 58 L Pulse Rate [Apical ] 77 Respiratory Rate 22 22 Respiratory Effort / Characteristics Non-Labored Blood Pressure 150/88 H Blood Pressure [Ri ght Arm] 185/102 H Blood Pressure Lindsey n 108 Blood Pressure Lindsey n [Right Arm] 129 Pulse Oximetry 94 99 Oxygen Delivery Me thod Room Air Room Air Sepsis Recent Feve r Within 48 Hours No Sepsis New/Unexpla ined Change in Men silvana Status No Sepsis Action Take n by Nursing No Action Required 02/14/25 21:46 02/14/25 21:50 02/14/25 22:09 Temperature 36.4 C L Temperature Source Rectal Pulse Rate 79 Pulse Rate [Apical ] 82 Respiratory Rate 20 20 Respiratory Effort / Characteristics Blood Pressure Blood Pressure [Ri ght Arm] 151/92 H Blood Pressure Lindsey n Blood Pressure Lindsey n [Right Arm] 111 Pulse Oximetry 100 100 Oxygen Delivery Me thod Room Air Room Air Sepsis Recent Feve r Within 48 Hours Sepsis New/Unexpla ined Change in Men silvana Status Sepsis Action Take n by Nursing Physical Exam: Physical Exam GENERAL: Ill-appearing. Holding a bag of bilious vomit next-door. HENT: Exam performed. - Head: Normocephalic and atraumatic. EYES: Conjunctivae and EOM are normal. Right eye exhibits no discharge. Left eye exhibits no discharge. No scleral icterus. NECK: Normal range of motion. Neck supple. No JVD present. CV: Normal rate, regular rhythm, normal heart sounds and intact distal pulses. There is no peripheral edema. Palpable radial pulses bue. PULM/CHEST: Effort normal and breath sounds normal. No respiratory distress. No stridor. no wheezes. no rales. ABD: The abdomen is soft. Diffuse tenderness to palpation of the abdomen. NEURO: Motor and sensation grossly intact. SKIN: Skin is warm and dry. He is not diaphoretic. PSYCH: normal mood and affect. Behavior is normal. Judgment and thought content normal. Course Course 2027: The patient was evaluated in room B10. A complete history and physical exam was performed Cardiac monitoring: An order was placed for continuous cardiac monitoring. The monitor shows a rate of 70 with sinus rhythm interpreted by me Nursing reports me that the patient was hypothermic on arrival. Patient be started on Macy hugger. Sepsis protocols initiated. 2139: Patient's lactic acid is 20. Patient be treated with 30 cc per/kg normal saline bolus and IV antibiotics Zosyn. 0: Patient on Macy hugger. Labs show leukocytosis at 13.3. Potassium 2.8. IV potassium repletion. In the emergency department. Stable. Drug screen is positive for MDMA and marijuana. COVID RSV and COVID-negative. CT head chest x-ray is unremarkable. CT abdomen pelvis showed no findings consistent with enteritis. Patient be admitted to the admitting hospitalist team. 223: Patient's rectal temperature is now 36.4 after being on Macy hugger and receiving warm IV fluids. Macy hugger discontinued at this time. Patient reports feeling much better after receiving IV fluids and IV antibiotics. Administered Medications Potassium Chloride (K Alexei / Wtr) 10 meq in 100 mls @ 100 mls/hr IV Q1H ESTELA Stop: 02/14/25 23:59 Last Admin: 02/14/25 23:13 Dose: 100 mls/hr Documented By: [email or web address] Infusion: 02/14/25 23:13 Dose: Infused Documented By: clw Admin: 02/14/25 22:15 Dose: 100 mls/hr Documented By: clcallie Lactated Ringer's (Lr) 1,000 mls @ 125 mls/hr IV .Q8H ESTELA Stop: 02/15/25 14:14 Last Admin: 02/14/25 23:14 Dose: 125 mls/hr Documented By: torri Magnesium Sulfate/Dextrose (Magnesium Sulfate / D5w) 1 gm in 100 mls @ 50 mls/hr IV ONE ONE Stop: 02/15/25 00:09 Last Admin: 02/14/25 23:14 Dose: 50 mls/hr Documented By: torri Discontinued Medications Diphenhydramine HCl (Diphenhydramine 50 Mg/Ml Vial) 25 mg IV NOW STA Stop: 02/14/25 20:37 Last Admin: 02/14/25 20:48 Dose: Not Given Documented By: AN Sodium Chloride (Nss) 1,000 mls @ 999 mls/hr IV .Q1H1M ONE Stop: 02/14/25 21:28 Last Admin: 02/14/25 20:46 Dose: 999 mls/hr Documented By: AN Sodium Chloride (Nss) 1,000 mls @ 999 mls/hr IV .Q1H1M ONE Stop: 02/14/25 22:27 Last Admin: 02/14/25 22:15 Dose: 999 mls/hr Documented By: torri Piperacillin Sod/Tazobactam Sod (Zosyn) 4.5 gm in 120 mls @ 240 mls/hr IV NOW ONE Stop: 02/14/25 21:57 Last Admin: 02/14/25 21:51 Dose: 240 mls/hr Documented By: torri Pantoprazole Sodium (Protonix) 40 mg in 10 mls @ 5 mls/min IV NOW ONE Stop: 02/14/25 22:53 Last Admin: 02/14/25 23:14 Dose: 5 mls/min Documented By: torri Ioversol (Optiray 320 100ml) 90 ml IV ONCE ONE Stop: 02/14/25 21:30 Last Admin: 02/14/25 21:29 Dose: 90 ml Documented By: MASSIMO Ketorolac Tromethamine (Ketorolac Tromethamine 15 Mg/Ml Vial) 15 mg IV NOW STA Stop: 02/14/25 20:29 Last Admin: 02/14/25 20:48 Dose: Not Given Documented By: AN Metoclopramide HCl (Metoclopramide Hcl Inj 5 Mg/Ml 2 Ml Vial) 5 mg IV ONE ONE Stop: 02/14/25 20:37 Last Admin: 02/14/25 20:49 Dose: Not Given Documented By: AN Ondansetron HCl (Ondansetron Inj 2 Mg/Ml 2 Ml Vial) 4 mg IV NOW STA Stop: 02/14/25 20:29 Last Admin: 02/14/25 20:48 Dose: Not Given Documented By: AN Ondansetron HCl (Ondansetron Inj 2 Mg/Ml 2 Ml Vial) 4 mg IV NOW STA Stop: 02/14/25 20:40 Last Admin: 02/14/25 20:46 Dose: 4 mg Documented By: AN Medical Decision Making Laboratory Data Attestation: I reviewed the patient's lab results. 02/14/25 20:41 02/14/25 20:41 Lab Results 02/14/25 02/14/25 02/14/25 Range/Units 20:25 20:41 20:47 WBC 13.33 H (4.8-10.8) K/ul RBC 4.76 (4.20-5.40) M/uL Hgb 13.8 (12.0-16.0) g/dL POC Hgb 13.9 (12.0-16.0) g/dl Hct 39.8 (37.0-47.0) % POC Hct 41 (37-47) % MCV 83.6 (80.0-100.0) fL MCH 29.0 (25.0-34.0) pg MCHC 34.7 (32.0-36.0) g/dL RDW Std Deviation 35.7 L (36.4-46.3) fL RDW Coeff of Josh 11.8 (11.5-14.5) % Plt Count 417 H (130-400) K/uL MPV 10.0 (9.4-12.4) fL Immature Gran % (Auto) 0.8 % Neut % (Auto) 72.3 % Lymph % (Auto) 21.8 % [place] % (Auto) 3.3 % Eos % (Auto) 0.6 % Baso % (Auto) 1.2 % Neut # (Auto) 9.64 H (1.40-6.50) K/uL Lymph # (Auto) 2.90 (1.20-3.40) K/uL [place] # (Auto) 0.44 (0.11-0.59) K/uL Eos # (Auto) 0.08 (0.00-0.50) K/uL Baso # (Auto) 0.16 (0.00-0.20) K/uL Immature Gran # (Auto) 0.11 (0.01-0.20) K/uL PT Cancelled INR Cancelled APTT Cancelled PTT Ratio Cancelled POC Sodium 143 (135-144) mmol/L Sodium 141 (136-145) mmol/L POC Potassium 2.7 L (3.3-5.0) mmol/L Potassium 2.8 L (3.5-5.1) mmol/L POC Chloride 108 (101-112) mmol/L Chloride 105 (98-107) mmol/L Carbon Dioxide 18 L (21-32) mmol/L POC Total CO2 18 L (24-31) mmol/L Anion Gap 18 H (3-11) POC Anion Gap 21.0 (16-25) mmol/L POC BUN 17 (7-18) mg/dl BUN 18 (6-23) mg/dl Creatinine 1.02 (0.6-1.2) mg/dl POC Creatinine 1.1 (0.6-1.3) mg/dl Est Cr Clr Drug Dosing 60.7 ml/min eGFR 67.86 BUN/Creatinine Ratio 17.6 (10-20) Glucose 232 H (70-99(Fasting)) mg/dl POC Glucose (other) 220 H (70-99) mg/dl Lactate 2.9 H* (0.4-2.0) mmol/L Calcium 10.3 (8.6-10.3) mg/dl POC Ioniz Calcium Angel 1.12 (1.12-1.32) mmol/l Magnesium 1.9 (1.7-2.4) mg/dl Total Bilirubin 0.7 (0.2-1.0) mg/dl Direct Bilirubin 0.1 (0-0.2) mg/dl AST 19 (13-39) U/L ALT 23 (7-52) U/L Alkaline Phosphatase 61 (34-104) U/L Troponin I High Sens 6.1 (0-14) pg/ml Total Protein 7.9 (6.0-8.3) gm/dl Albumin 4.9 (3.4-5.0) gm/dl Lipase 23 (11-82) U/L HCG, Quant 4 mIU/ml Urine Color Urine Appearance (Clear) Urine pH (4.5-7.5) Ur Specific [place] (1.000-1.030) Urine Protein (Negative) Urine Glucose (UA) (Negative) Urine Ketones (Negative) Urine Blood (Negative) Urine Nitrite (Negative) Urine Bilirubin (Negative) Urine Urobilinogen (Negative) Ur Leukocyte Esterase (Negative) Urine WBC (Auto) (0-5) /hpf Urine RBC (Auto) (0-2) /hpf U Hyaline Cast (Auto) (0-2) /lpf U Epithel Cells (Auto) (0-2) /hpf Urine Bacteria (Auto) (None Seen) Amorphous Sediment (None Prsent) Granular Casts (None Prsent) /lpf Urine Mucus (None Prsent) POC Ur Test (NEG) Urine Comment Urine Opiates Screen (Neg) Ur Methadone, Qual (Neg) Urine Fentanyl Screen (Neg) Urine Barbiturates (Neg) Ur Phencyclidine (PCP) (Neg) U Amphetamin/Meth Scrn (Neg) MDMA (Ecstasy) Screen (Neg) U Benzodiazepines Scrn (Neg) Ur Cocaine Metabolite (Neg) U Marijuana (THC) Screen (Neg) SARS-CoV-2 (PCR) (Negative) Influenza Type A (PCR) (Neg) Influenza Type B (PCR) (Neg) RSV (RT-PCR) (Neg) 02/14/25 02/14/25 02/14/25 Range/Units 20:57 21:05 21:14 WBC (4.8-10.8) K/ul RBC (4.20-5.40) M/uL Hgb (12.0-16.0) g/dL POC Hgb (12.0-16.0) g/dl Hct (37.0-47.0) % POC Hct (37-47) % MCV (80.0-100.0) fL MCH (25.0-34.0) pg MCHC (32.0-36.0) g/dL RDW Std Deviation (36.4-46.3) fL RDW Coeff of Josh (11.5-14.5) % Plt Count (130-400) K/uL MPV (9.4-12.4) fL Immature Gran % (Auto) % Neut % (Auto) % Lymph % (Auto) % [place] % (Auto) % Eos % (Auto) % Baso % (Auto) % Neut # (Auto) (1.40-6.50) K/uL Lymph # (Auto) (1.20-3.40) K/uL [place] # (Auto) (0.11-0.59) K/uL Eos # (Auto) (0.00-0.50) K/uL Baso # (Auto) (0.00-0.20) K/uL Immature Gran # (Auto) (0.01-0.20) K/uL PT INR APTT PTT Ratio POC Sodium (135-144) mmol/L Sodium (136-145) mmol/L POC Potassium (3.3-5.0) mmol/L Potassium (3.5-5.1) mmol/L POC Chloride (101-112) mmol/L Chloride (98-107) mmol/L Carbon Dioxide (21-32) mmol/L POC Total CO2 (24-31) mmol/L Anion Gap (3-11) POC Anion Gap (16-25) mmol/L POC BUN (7-18) mg/dl BUN (6-23) mg/dl Creatinine (0.6-1.2) mg/dl POC Creatinine (0.6-1.3) mg/dl Est Cr Clr Drug Dosing ml/min eGFR BUN/Creatinine Ratio (10-20) Glucose (70-99(Fasting)) mg/dl POC Glucose (other) (70-99) mg/dl Lactate (0.4-2.0) mmol/L Calcium (8.6-10.3) mg/dl POC Ioniz Calcium Angel (1.12-1.32) mmol/l Magnesium (1.7-2.4) mg/dl Total Bilirubin (0.2-1.0) mg/dl Direct Bilirubin (0-0.2) mg/dl AST (13-39) U/L ALT (7-52) U/L Alkaline Phosphatase (34-104) U/L Troponin I High Sens (0-14) pg/ml Total Protein (6.0-8.3) gm/dl Albumin (3.4-5.0) gm/dl Lipase (11-82) U/L HCG, Quant mIU/ml Urine Color Yellow Urine Appearance Cloudy A (Clear) Urine pH >= 9.0 H (4.5-7.5) Ur Specific [place] 1.018 (1.000-1.030) Urine Protein 1+ H (Negative) Urine Glucose (UA) Trace H (Negative) Urine Ketones 3+ H (Negative) Urine Blood Negative (Negative) Urine Nitrite Negative (Negative) Urine Bilirubin Negative (Negative) Urine Urobilinogen Negative (Negative) Ur Leukocyte Esterase Negative (Negative) Urine WBC (Auto) 11-20 H (0-5) /hpf Urine RBC (Auto) 0-2 (0-2) /hpf U Hyaline Cast (Auto) 11-20 H (0-2) /lpf U Epithel Cells (Auto) 0-2 (0-2) /hpf Urine Bacteria (Auto) None Seen (None Seen) Amorphous Sediment Present A (None Prsent) Granular Casts Present A (None Prsent) /lpf Urine Mucus Present A (None Prsent) POC Ur Test NEG (NEG) Urine Comment Urine Opiates Screen Neg (Neg) Ur Methadone, Qual Neg (Neg) Urine Fentanyl Screen Neg (Neg) Urine Barbiturates Neg (Neg) Ur Phencyclidine (PCP) Neg (Neg) U Amphetamin/Meth Scrn Neg (Neg) MDMA (Ecstasy) Screen Pos H (Neg) U Benzodiazepines Scrn Neg (Neg) Ur Cocaine Metabolite Neg (Neg) U Marijuana (THC) Screen Pos H (Neg) SARS-CoV-2 (PCR) NEGATIVE (Negative) Influenza Type A (PCR) Negative (Neg) Influenza Type B (PCR) Negative (Neg) RSV (RT-PCR) Negative (Neg) Imaging Data Attestation: I personally reviewed and interpreted this imaging study as follows: My Impression: Chest x-ray negative. Airway clear. No pneumothorax. No consolidation. No cardiomegaly or cephalization.. No free air under the diaphragm. No fractures of the skeletal structures. Radiologist's Impression: Abdomen/Pelvis CT 02/14/25 20:36 Exam(s): CT ABDOMEN + PELVIS With Contrast IV Amt: 90 ml optiray 320 EXAM: CT Abdomen and Pelvis With Intravenous Contrast CLINICAL HISTORY: Reason for exam: abdominal pain. TECHNIQUE: Axial computed tomography images of the abdomen and pelvis with intravenous contrast. CTDI is 8.9 mGy and DLP is 398.53 mGy-cm. Automated exposure control was utilized for the study. A dose lowering technique was utilized adhering to the principles of ALARA. CONTRAST: Patient received 90 ml optiray 320 of IV contrast COMPARISON: CT abdomen/pelvis on 08/28/2022 FINDINGS: Lung bases: Unremarkable. No mass. No consolidation. Mediastinum: Small hiatal hernia. ABDOMEN: Liver: Unremarkable. No mass. Gallbladder and bile ducts: Prior cholecystectomy. No ductal dilation. Pancreas: Unremarkable. No mass. No ductal dilation. Spleen: Unremarkable. No splenomegaly. Adrenals: Unremarkable. No mass. Kidneys and ureters: Unremarkable. No hydronephrosis or obstructing ureteral stone. Stomach and bowel: Fluid-filled small bowel could be secondary to enteritis in the appropriate clinical setting. Evaluation of the stomach is limited by underdistention. Moderate stool in the colon. No small bowel obstruction. PELVIS: Appendix: Normal appendix. Bladder: Ramírez catheter in an underdistended bladder limits evaluation. Reproductive: Unremarkable as visualized. ABDOMEN and PELVIS: Intraperitoneal space: Unremarkable. No free air. No significant fluid collection. Bones/joints: Curvature of the spine. Degenerative changes of the spine. No acute fracture. No dislocation. Soft tissues: Injection granuloma in the right gluteal soft tissues. Vasculature: Unremarkable. No abdominal aortic aneurysm. Lymph nodes: Unremarkable. No enlarged lymph nodes. IMPRESSION: Fluid-filled small bowel could be secondary to enteritis in the appropriate clinical setting. Electronically signed by: Ian Tarango M.D. 02/14/25 21:49 PM Chest X-Ray 02/14/25 20:42 Exam(s): XR CXR 1 VIEW EXAM: XR Chest, 1 View CLINICAL HISTORY: Reason for exam: vomitting. TECHNIQUE: Frontal view of the chest. COMPARISON: Chest radiograph on 08/28/2022 FINDINGS: Hardware: None. Lungs/pleura: Normal. No focal consolidation. No pleural effusion or pneumothorax. Heart/mediastinum: Normal. No cardiomegaly. Soft tissues: Unremarkable. Bones: No acute fracture. Upper abdomen: Normal. IMPRESSION: No acute disease identified. Electronically signed by: Ian Tarango M.D. 02/14/25 22:[address] 02/14/25 20:44 Exam(s): CT HEAD Without Contrast EXAM: CT Head Without Intravenous Contrast CLINICAL HISTORY: Reason for exam: de [place]. TECHNIQUE: Axial computed tomography images of the head/brain without intravenous contrast. CTDI is 37.78 mGy and DLP is 546.36 mGy-cm. Automated exposure control was utilized for the study. A dose lowering technique was utilized adhering to the principles of ALARA. COMPARISON: CT head on 09/27/2022 FINDINGS: Brain: No acute infarct or hemorrhage. No extra-axial fluid collection. No mass effect or midline shift. Ventricles and sulci: Normal. No ventriculomegaly or intraventricular hemorrhage. Bones: Normal. No bony lesion or acute fracture. Subcutaneous tissues: Normal. Sinuses: Normal. No air-fluid levels or mucosal thickening. Mastoid air cells: Normal. Orbits: Grossly unremarkable. IMPRESSION: No acute intracranial abnormality. Electronically signed by: Ian Tarango M.D. 02/14/25 21:51 PM ECG Data Attestation: I personally reviewed and interpreted this ECG as follows: Additional Comments: Sinus rhythm with a rate of 73. GA 142 QRS [address] elevation or ST depression. No [place] waves. [facility] Narrative 2027: The patient was evaluated in room B10. A complete history and physical exam was performed Cardiac monitoring: An order was placed for continuous cardiac monitoring. The monitor shows a rate of 70 with sinus rhythm interpreted by me Nursing reports me that the patient was hypothermic on arrival. Patient be started on Macy hugger. Sepsis protocols initiated. 2139: Patient's lactic acid is 20. Patient be treated with 30 cc per/kg normal saline bolus and IV antibiotics Zosyn. 2199: Patient on Macy hugger. Labs show leukocytosis at 13.3. Potassium 2.8. IV potassium repletion. In the emergency department. Stable. Drug screen is positive for MDMA and marijuana. COVID RSV and COVID-negative. CT head chest x-ray is unremarkable. CT abdomen pelvis showed no findings consistent with enteritis. Patient be admitted to the admitting hospitalist team. 2229: Patient's rectal temperature is now 36.4 after being on Macy hugger and receiving warm IV fluids. Macy hugger discontinued at this time. Patient reports feeling much better after receiving IV fluids and IV antibiotics. Impression & Plan Intractable vomiting with nausea, Hypokalemia, Hypothermia Critical Care Time Critical Care Time: Yes Total Critical Care Time: 48 I have personally spent greater than 48 minutes of critical care time in the direct management of this patient. This includes bedside care, interpretation of diagnostic studies, and testing, discussion with consultants, patient, and family members, and other required patient management activities. This 48 minutes is in excess of all separately billable procedures. Discharge Plan Visit Data Chief Complaint: Vomiting Stated Complaint: N/V, SOB ED Provider: Javier Terry Discharge Problem: Intractable vomiting with nausea, Hypokalemia, Hypothermia Patient Disposition: Admitted As Inpatient Condition: Serious Forms Stand Alone Forms: My [facility] Prescriptions Prescriptions: No Action propranolol 60 mg capsule,extended release 24 hr 60 mg PO DAILY 30 Days Qty: 30 2RF cyclobenzaprine 5 mg tablet See Rx Instructions .ROUTE .COMPLEX Qty: 30 1RF Dose Instruction: TAKE 1 TABLET BY MOUTH EVERY DAY AT BEDTIME NEEDED FOR MUSCLE SPASM Rx Instructions: TAKE 1 TABLET BY MOUTH EVERY DAY AT BEDTIME NEEDED FOR MUSCLE SPASM bupropion HCl [Wellbutrin SR] 200 mg tablet sustained-release 12 hr 200 mg PO BID citalopram [Celexa] 40 mg tablet 40 mg PO DAILY folic acid 1 mg tablet 1 mg PO DAILY Qty: 90 1RF Zepbound 2.5 mg/0.5 mL solution 2.5 mg subcut WK azelastine 137 mcg (0.1 %) spray,non-aerosol 2 spray intranasal BID Qty: 30 2RF Rx Instructions: administer into each nostril ropinirole 0.5 mg tablet 0.5 mg PO BID PRN (Reason: restless leg syndrome) Qty: 180 1RF Nurtec ODT 75 mg tablet,disintegrating 75 mg PO Q OTHER DAY PRN (Reason: migraine headache) Qty: 8 3RF gabapentin 600 mg tablet 600 mg PO TID Rx Instructions: 600 AM 600 AFTERNOON AND 1200 HS acetaminophen [Tylenol Extra Strength] 500 mg tablet 500 mg PO Q6H PRN (Reason: Pain) famotidine [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 Paper Mill Superintendent (famotidine)] 20 mg tablet 20 mg PO BID Qty: 180 3RF pantoprazole 40 mg tablet,delayed release (DR/EC) 40 mg PO DAILY Qty: 90 3RF ibuprofen [Advil] 200 mg tablet 800 mg PO Q8H PRN (Reason: pain) Qty: 90 0RF diclofenac sodium 1 % gel 2 g topical QID Qty: 100 0RF Rx Instructions: apply to single elbow, wrist or hand; for hand includes palm/fingers/back of hand multivitamin Tablet 1 tab PO DAILY Qty: 90 0RF ondansetron 4 mg tablet,disintegrating 4 mg PO Q8H PRN (Reason: nausea and vomiting) Qty: 10 0RF lamotrigine [Lamictal] 25 mg tablet 200 mg PO BID rizatriptan 10 mg tablet 10 mg PO ONCE PRN (Reason: Migraine Headache) Rx Instructions: TAKE 1 TAB NEEDED FOR HEADACHE. MAY TAKE SECOND TAB NEEDED AFTER 2 HOUR. NO MORE THAN 2 TABS IN 24 HOURS. DO NOT USE MORE THAN 3 DAYS PER WEEK. Referrals Referrals: Diogenes Foster DO [Primary Care Provider] -
[2025-02-14] MEDS: SODIUM CHLORIDE 0.9% 1,000 ML IV ONE ×2 (20:46→22:15)
[2025-02-14] MEDS: ONDANSETRON INJ 2 MG/ML 2 ML VIAL IV STA ×2 (20:46→20:48)
[2025-02-14] MEDS: KETOROLAC TROMETHAMINE 15 MG/ML VIAL IV STA (20:48)
[2025-02-14] MEDS: diphenhydrAMINE 50 MG/ML VIAL IV STA (20:48)
[2025-02-14] MEDS: METOCLOPRAMIDE HCL INJ 5 MG/ML 2 ML VIAL IV ONE (20:49)
[2025-02-14 21:14] LABS: Hematocrit (blood only) 39.8 % (37.0-47.0); Hemoglobin 13.8 g/dL (12.0-16.0); Immature Granulocytes # (auto) 0.11 K/uL (0.01-0.20); Immature Granulocytes % (auto) 0.8 %; Mean Corpuscular Hemoglobin 29.0 pg (25.0-34.0); Mean Corpuscular Volume 83.6 fL (80.0-100.0); Platelet Count 417 K/uL (130-400); RDW Standard Deviation 35.7 fL (36.4-46.3); Red Blood Count 4.76 M/uL (4.20-5.40); White Blood Count 13.33 K/ul (4.8-10.8)
[2025-02-14] MEDS: OPTIRAY 320 100ml IV ONE (21:29)
[2025-02-14 21:31] LABS: Albumin Level 4.9 gm/dl (3.4-5.0); Anion Gap 18.0 (3-11); Bilirubin,Total 0.7 mg/dl (0.2-1.0); Calcium 10.3 mg/dl (8.6-10.3); Carbon Dioxide 18.0 mmol/L (21-32); Chloride 105.0 mmol/L (98-107); Magnesium 1.9 mg/dl (1.7-2.4); Potassium 2.8 mmol/L (3.5-5.1); Sodium 141.0 mmol/L (136-145)
[2025-02-14 21:32] LABS: Appearance Urine Cloudy (Clear); Bacteria Urine Automated None Seen (None Seen); Epithelial Cell Urine Auto 0-2 /hpf (0-2); Glucose Urine UA Trace (Negative); RBC Urine Automated 0-2 /hpf (0-2)
[2025-02-14 21:37] LABS: Alanine Aminotransferase 23.0 U/L (7-52); Alkaline Phosphatase 61.0 U/L (34-104); Blood Urea Nitrogen 18.0 mg/dl (6-23); Creatinine Clr Calc Pharmacy 60.7 ml/min; Glucose 232.0 mg/dl (70-99(Fasting)); Lipase 23.0 U/L (11-82); Total Protein 7.9 gm/dl (6.0-8.3)
[2025-02-14 21:42] LABS: Amphetamines+Metham, Urine Neg (Neg); MDMA (Ecstacy), Urine Pos (Neg); Marijuana, Urine Pos (Neg)
--- NOTE | 2025-02-14 21:49 | CT Scan Report ---
Exam(s): CT ABDOMEN + PELVIS With Contrast IV Amt: 90 ml optiray 320 EXAM: CT Abdomen and Pelvis With Intravenous Contrast CLINICAL HISTORY: Reason for exam: abdominal pain. TECHNIQUE: Axial computed tomography images of the abdomen and pelvis with intravenous contrast. CTDI is 8.9 mGy and DLP is 398.53 mGy-cm. Automated exposure control was utilized for the study. A dose lowering technique was utilized adhering to the principles of ALARA. CONTRAST: Patient received 90 ml optiray 320 of IV contrast COMPARISON: CT abdomen/pelvis on 08/28/2022 FINDINGS: Lung bases: Unremarkable. No mass. No consolidation. Mediastinum: Small hiatal hernia. ABDOMEN: Liver: Unremarkable. No mass. Gallbladder and bile ducts: Prior cholecystectomy. No ductal dilation. Pancreas: Unremarkable. No mass. No ductal dilation. Spleen: Unremarkable. No splenomegaly. Adrenals: Unremarkable. No mass. Kidneys and ureters: Unremarkable. No hydronephrosis or obstructing ureteral stone. Stomach and bowel: Fluid-filled small bowel could be secondary to enteritis in the appropriate clinical setting. Evaluation of the stomach is limited by underdistention. Moderate stool in the colon. No small bowel obstruction. PELVIS: Appendix: Normal appendix. Bladder: Ramírez catheter in an underdistended bladder limits evaluation. Reproductive: Unremarkable as visualized. ABDOMEN and PELVIS: Intraperitoneal space: Unremarkable. No free air. No significant fluid collection. Bones/joints: Curvature of the spine. Degenerative changes of the spine. No acute fracture. No dislocation. Soft tissues: Injection granuloma in the right gluteal soft tissues. Vasculature: Unremarkable. No abdominal aortic aneurysm. Lymph nodes: Unremarkable. No enlarged lymph nodes. IMPRESSION: Fluid-filled small bowel could be secondary to enteritis in the appropriate clinical setting. Electronically signed by: Ian Tarango M.D. 02/14/25 21:49 PM
[2025-02-14] MEDS: PIPERACILLIN/TAZOBACTAM 4.5 GM/120 ML BAG IV ONE (21:51)
--- NOTE | 2025-02-14 21:51 | CT Scan Report ---
Exam(s): CT HEAD Without Contrast EXAM: CT Head Without Intravenous Contrast CLINICAL HISTORY: Reason for exam: de santiago. TECHNIQUE: Axial computed tomography images of the head/brain without intravenous contrast. CTDI is 37.78 mGy and DLP is 546.36 mGy-cm. Automated exposure control was utilized for the study. A dose lowering technique was utilized adhering to the principles of ALARA. COMPARISON: CT head on 09/27/2022 FINDINGS: Brain: No acute infarct or hemorrhage. No extra-axial fluid collection. No mass effect or midline shift. Ventricles and sulci: Normal. No ventriculomegaly or intraventricular hemorrhage. Bones: Normal. No bony lesion or acute fracture. Subcutaneous tissues: Normal. Sinuses: Normal. No air-fluid levels or mucosal thickening. Mastoid air cells: Normal. Orbits: Grossly unremarkable. IMPRESSION: No acute intracranial abnormality. Electronically signed by: Ian Tarango M.D. 02/14/25 21:51 PM
[2025-02-14 21:53] LABS: Influenza A virus by PCR Negative (Neg); Influenza B virus by PCR Negative (Neg); SARS CoV2 RNA(COVID-19) Ceph NEGATIVE (Negative)
--- NOTE | 2025-02-14 22:10 | History & Physical Report ---
Date of Service February 14, 2025 Assessment & Plan (1) Hypokalemia due to excessive gastrointestinal loss of potassium: (2) Acute dehydration: (3) Gastroenteritis: (4) Intractable vomiting with nausea: (5) Cannabis hyperemesis syndrome: (6) High anion gap metabolic acidosis: Plan Patient is a 49-year-old female with a past medical history of anxiety, depression, gastroparesis, alcohol dependence (sober since September 2022), opioid use disorder, nicotine dependence. Patient presented due to sudden onset of nausea and vomiting found to have enteritis on diagnostic imaging. Laboratories revealed lactate 2.9, K+ 2.8, WBC 13.33, and elevated anion gap. Patient is being admitted for intractable nausea and vomiting thought to be secondary to cannabis hyperemesis syndrome and hypokalemia with dehydration. #hypokalemia/hypomagnesemia/acute dehydration - K+ 2.8, Mg 1.9, renal function stable. UA with ketones. Patient with extremely dry mucous membranes. laboratories hemoconcentrated. EKG ordered to evaluate for any changes Total 4 bags K rider and 1G IV magnesium ordered Received 2L NSS bolus in ED, continue fluid resuscitation with LR at 125 mL/hour x 2l Repeat BMP 02/15 0100 and with a.m. labs Trend magnesium Monitor on telemetry #Enteritis/intractable nausea/cannabis hyperemesis syndrome - AP CT revealed enteritis. With leukocytosis (WBC 13.33). UDS positive for MDMA (bupropion use) and THC (has medical marijuana card x 1year). If nausea returns will trial capsaicin ointment Nausea control with Zofran prn, Reglan for breakthrough nausea Full liquid diet, advance as tolerated Transition p.o. pantoprazole to IV Patient was given Zosyn in the ED, defer further ABX use as no acute indication - follow blood cultures Trend CBC #High anion gap lactic acidosis - lactate 2.9, anion gap 18, CO2 18. Likely in the setting of hemoconcentration with acute dehydration above. 2-hour repeat of lactate IVF as above Trending BMP as above #mental healthcontinue bupropion, citalopram, lamotrigine, Gabapentin #RLScontinue propranolol as needed #Migrainescontinue propranolol #GERD/gastroparesistransitioning p.o. PPI and famotidine to IV. Has been following with [facility] gastroenterology and concerned that gastroparesis related to her Zepbound (injections on Fridays) #nicotine usepatient endorses vaping. Encourage smoking cessation NicoDerm patch ordered VTE ppx: SCDs, low risk Dispo: med/telemetry - possible DC 02/15 if potassium improves Admission and Anticipated Discharge Date Admission Date: 02/14/25 History of Present Illness Chief Complaint: vomiting Primary Care Provider: Diogenes Foster DO Patient is a 49-year-old female with a past medical history of anxiety, depression, gastroparesis, alcohol dependence (sober since September 2022), opioid use disorder, nicotine dependence. Patient presented due to sudden onset of nausea and vomiting found to have enteritis on diagnostic imaging. Laboratories revealed lactate 2.9, K+ 2.8, WBC 13.33, and elevated anion gap. Patient is being admitted for intractable nausea and vomiting thought to be secondary to cannabis hyperemesis syndrome and hypokalemia with dehydration. Patient seen at bedside. she stated this afternoon she developed sudden onset nausea and vomiting. She stated the vomit was yellow but denies any hematemesis. She feels as though she vomited over 10 times. She received Zofran x 2, Benadryl, and Reglan in the ED which has now improved her nausea however not completely resolved. She endorses dizziness and lightheadedness. She stated she did have some right sided abdominal pain with the vomiting earlier however now resolved. She stated she did not eat anything out of the ordinary today, had a sandwich and fruit cup earlier. She also endorses several days of dyspnea and nasal congestion however denies any sick contacts. COVID/flu/RSV swab negative. She also endorses increase in urinary frequency for several days however denies any dysuria or hematuria. She denies any chest pain or diarrhea. Patient does endorse vaping use, would like nicotine patch. She denies any alcohol use. She denies illicit drug use however on further questioning patient does have her medical marijuana card which she has had for about 1 year. She does not smoke every day and stated she smokes here and there. Patient educated on cannabis hyperemesis syndrome. Will trial capsaicin if nausea returns. She took her morning and afternoon medications however vomited her afternoon medications. She is due for her evening medications. She wishes to be full code. Nursing staff at bedside. Patient was placed on a Macy hugger due to temperature 34.6 C. Temperature currently 36.9C, Macy hugger discontinued. Nursing to remove previously ordered Ramírez catheter as no acute indication for catheter at this time. Allergies Allergy/AdvReac Type Severity Reaction Status Date / Time latex Allergy Mild CRACKS SKIN Verified 12/08/24 11:15 No Known Drug Allergies Allergy Verified 12/08/24 11:15 Home Medications Medication Instructions Recorded Confirmed Type ondansetron 4 mg disintegrating 4 mg PO Q8H PRN nausea and 09/29/22 02/14/25 Rx tablet vomiting #10 tabs acetaminophen 500 mg tablet 500 mg PO Q6H PRN Pain 01/30/24 02/14/25 History (Tylenol Extra Strength) diclofenac sodium 1 % topical gel 2 g topical QID #100 grams 01/30/24 02/14/25 Rx famotidine 20 mg tablet (Acid 20 mg PO BID #180 tabs 01/30/24 02/14/25 Rx Chief Digital Officer (famotidine)) gabapentin 600 mg tablet 600 mg PO TID 01/30/24 02/14/25 History ibuprofen 200 mg tablet (Advil) 800 mg (4 x 200 mg) PO Q8H PRN 01/30/24 02/14/25 Rx pain #90 tabs lamotrigine 25 mg tablet (Lamictal) 200 mg PO BID 01/30/24 02/14/25 History multivitamin 1 tab PO DAILY #90 tabs 01/30/24 02/14/25 Rx pantoprazole 40 mg tablet,delayed 40 mg PO DAILY #90 tabs 01/30/24 02/14/25 Rx release rimegepant 75 mg disintegrating 75 mg PO Q OTHER DAY PRN migraine 04/06/24 02/14/25 Rx tablet (Nurtec ODT) headache #8 tabs bupropion HCl 200 mg tablet,12 hr 200 mg PO BID 05/28/24 02/14/25 History sustained-release (Wellbutrin SR) azelastine 137 mcg (0.1 %) nasal 2 spray intranasal BID #30 mL 12/08/24 02/14/25 Rx spray citalopram 40 mg tablet (Celexa) 40 mg PO DAILY 12/08/24 02/14/25 History folic acid 1 mg tablet 1 mg PO DAILY #90 tabs 12/08/24 02/14/25 Rx ropinirole 0.5 mg tablet 0.5 mg PO BID PRN restless leg 12/08/24 02/14/25 Rx syndrome #180 tabs tirzepatide (weight loss) 2.5 2.5 mg subcut WK 12/08/24 02/14/25 History mg/0.5 mL subcutaneous solution (Zepbound) propranolol 60 mg capsule,24 60 mg PO DAILY 30 days #30 caps 01/06/25 02/14/25 Rx hr,extended release cyclobenzaprine 5 mg tablet See Rx Instructions .Route 01/19/25 02/14/25 Rx .COMPLEX #30 tabs rizatriptan 10 mg tablet 10 mg PO ONCE PRN Migraine Headache 02/14/25 02/14/25 History Past Med/Surg History Problem List (Updated 02/14/25 @ 23:34 by Javier Terry MD) Hypothermia (Acute) Hypokalemia (Acute) High anion gap metabolic acidosis Intractable vomiting with nausea (Acute) Gastroenteritis Cannabis hyperemesis syndrome Acute dehydration Hypokalemia due to excessive gastrointestinal loss of potassium CMC arthritis Migraine with aura Acne vulgaris History of alcohol use disorder (Acute) Seizure (Acute) Gastroparesis ASCUS with positive high risk HPV History of opioid abuse (Acute) 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 Medical History Chronic narcotic use History of migraine headaches Concussion Hypokalemia Alcohol abuse Alcohol intoxication Alcohol dependence Alcoholism Hepatitis C Spinal stenosis GERD (gastroesophageal reflux disease) Jaw clicking NO LOCKING Anxiety and depression HPV (human papilloma virus) infection Hepatitis C NO TREATMENT Chronic back pain LOWER BACK/NECK PAIN Cholelithiasis History of stomach ulcers History of blood clots PE-5-6 YRS AGO-"SMOKER/ON DEPO SHOT-TREATED AT THE TIME WITH BLOOD THINNERS"- NO ISSUES SINCE History of back problems Surgical History Hx laparoscopic cholecystectomy (01/27/20) History of esophagogastroduodenoscopy (EGD) H/O colonoscopy 10/08/2023, repeat due in 10 years Family History Grandmother (Maternal) Breast cancer Throat cancer Grandfather (Maternal) Diabetes Heart disease Hypertension Myocardial infarction Uncle Skin cancer Aunt Breast cancer Grandmother (Paternal) Breast cancer Other No family history of adverse response to anesthesia Denies family history of Ovarian cancer Prostate cancer Colorectal cancer Social History Smoking Status: Current every day smoker Tobacco Type: E-cigarettes / Vaping Age Started Using Tobacco: 16; packs per day: 1; Second Hand Exposure: No; Do You Dip or Chew Tobacco: No; Hx Alcohol Use: No Hx Substance Use: Yes Last Used Substance: Days (ago) Substance Use Type Other:: STOPPED USING OPOIDS 3 YRS AGO Preferred Language: Andorran Communication Ability: Effective Visual Impairment: No Limitations Hearing Ability: Normal Plumbing Hardware Assembler Required: No Beliefs That Will Affect Care: None marital status: Single Current Living Situation: Family Current Living Situation Comment: with son 17 year old 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 Non-toxic appearing. HEENT- EOMI, mucous membranes dry. Hearing grossly intact. Heart-normal S1 and S2. No murmurs, rubs or gallops. Lungs-clear bilaterally, no respiratory distress, no accessory muscle use. Abdomen-normal bowel sounds and soft. No ascites noted. Non-tender. Extremities- no clubbing, cyanosis, or edema. Rheumatologic-normal range of motion. Psychiatric-normal affect. Results & Data Results & Data Vital Signs (Past 12 Hours) Vital Signs Temp Pulse Pulse Resp BP BP Pulse Ox 02/14/25 22:09 36.4 C L 02/14/25 21:50 82 20 151/92 H 100 02/14/25 21:46 79 20 100 02/14/25 21:09 34.6 C L 77 22 185/102 H 99 02/14/25 20:08 58 L 02/14/25 20:06 74 22 150/88 H 94 O2 Del Method 02/14/25 22:09 02/14/25 21:50 Room Air 02/14/25 21:46 Room Air 02/14/25 21:09 Room Air 02/14/25 20:08 02/14/25 20:06 Room Air Laboratory Results reviewed CBC, CMP, lactate, magnesium, troponin, hCG, UA, UDS, COVID/flu/RSV swab Diagnostic Findings reviewed APCT, head CT, CXR Medications Administered EDZosyn 4.5 G IV, Zofran 4 Mg IV x 2, Toradol 15 Mg IV, Benadryl 25 mg IV, Reglan 5 mg IV, 2 bags K rider, 2L NSS bolus ECG Additional Comments: ordered Code Status & VTE Plan Code Status full code VTE Prophylaxis Plan VTE Prophylaxis will be ordered: Yes Supervising Physician Co-Signing Physician Notes Attending addendum: I have physically seen this patient, have supervised the NIK's activities, and agree with the H&P unless as otherwise noted. Assessment and Plan: The patient is a 49-year-old female with past medical history including anxiety, depression, gastroparesis, alcohol dependence-sober since 823, opioid use disorder, and nicotine dependence. She presents to the emergency department due to sudden onset of nausea and vomiting. CT scan of abdomen and pelvis suggested enteritis, chest x-ray was negative, CT scan of the head was negative. Urine drug screen positive for MDMA, and marijuana. Significant laboratory abnormalities: Potassium 2.8, magnesium 1.9, glucose 232, lactate 2.9. COVID, flu, RSV testing all negative. From the ED the patient received the following: Normal saline 1 L bolus x 2, calcium chloride 10 mEq IV riders x 2, Zofran 4 mg IV x 2, Toradol 15 mg IV x 1, Benadryl 25 mg IV x 1, Reglan 5 mg IV x 1, and Zosyn 4.5 g IV. #Intractable nausea and vomiting/enteritis/cannabinol hyperemesis syndrome- She is currently nausea and vomiting free. Capsaicin ointment if symptoms return Zofran 4 mg IV every 6 hours as needed Reglan 5 mg IV every 6 hours as needed Pantoprazole 40 mg IV daily Patient received Zosyn 4.5 mg IV, would not prescribe any additional at this time Follow blood cultures No recent antibiotic use Send stool PCR if diarrhea Patient feels that she could eat this time, start with full liquid diet and advance as tolerated #Hypokalemia/hypomagnesemia/dehydration/lactic acidosis- Significantly decreased oral intake over the past several days. Potassium 2.8, magnesium 1.9 on admission The patient will be admitted to telemetry IV replacement as noted Status post 2 L normal saline bolus in the ED Placed on LR at 125 mL/h x 2 L BMP and magnesium every morning Lactate 2.9 on admission, with follow-up 1.7. #Anxiety and depression- Continue bupropion, citalopram, lamotrigine, and gabapentin Remaining orders and notations as noted PG Care Time/CCT Total # of Minutes Spent Total Time Spent with Patient: Total time spent is greater than 50% in coordination of care (as documented) at patient's floor/unit and/or counseling patient: Coding Level of Care Code 67763 INT INP/OBS CARE 3/75MIN Diagnoses Hypokalemia due to excessive gastrointestinal loss of potassium E87.6 Acute dehydration E86.0 Gastroenteritis K52.9 Intractable vomiting with nausea R11.2 Cannabis hyperemesis syndrome R11.16 High anion gap metabolic acidosis E87.29
[2025-02-14] MEDS: POTASSIUM CHLORIDE / WTR 10 MEQ/100 ML PLCT IV SCH (22:15)
--- NOTE | 2025-02-14 22:53 | XRay Report ---
Exam(s): XR CXR 1 VIEW EXAM: XR Chest, 1 View CLINICAL HISTORY: Reason for exam: vomitting. TECHNIQUE: Frontal view of the chest. COMPARISON: Chest radiograph on 08/28/2022 FINDINGS: Hardware: None. Lungs/pleura: Normal. No focal consolidation. No pleural effusion or pneumothorax. Heart/mediastinum: Normal. No cardiomegaly. Soft tissues: Unremarkable. Bones: No acute fracture. Upper abdomen: Normal. IMPRESSION: No acute disease identified. Electronically signed by: Ian Tarango M.D. 02/14/25 22:52 PM
[2025-02-14] MEDS: PANTOprazole 40 MG/10 ML SYR IV ONE (23:14)
[2025-02-14] MEDS: MAGNESIUM SULFATE / D5W 1 GM/100 ML BAG IV ONE (23:14)
[2025-02-14] MEDS: LACTATED RINGER'S 1,000 ML IV SCH (23:14)
[2025-02-14] MEDS ORDERED: POLYETHYLENE (MIRALAX) 17 GM PACK PO PRN (23:42)
[2025-02-14] MEDS ORDERED: DOCUSATE SODIUM 100 MG CAP PO PRN (23:42)
[2025-02-15 00:15] LABS: INR 1.1 (0.9-1.1); Partial Thromboplastin Time 21 Seconds (21-31); Prothrombin Time 11.4 Seconds (9.0-12.0)
[2025-02-15] MEDS: FAMOTIDINE 20MG IV PUSH 20 MG/5 ML SYR IV SCH (00:58)
[2025-02-15] MEDS: lamoTRIgine 100 MG TAB PO SCH (00:58)
[2025-02-15] MEDS: POTASSIUM CHLORIDE / WTR 10 MEQ/100 ML PLCT IV SCH ×2 (01:19→08:27)
[2025-02-15 01:31] LABS: Anion Gap 8.0 (3-11); Calcium 8.5 mg/dl (8.6-10.3); Carbon Dioxide 23.0 mmol/L (21-32); Chloride 113.0 mmol/L (98-107); Potassium 2.8 mmol/L (3.5-5.1); Sodium 144.0 mmol/L (136-145)
[2025-02-15 01:37] LABS: Blood Urea Nitrogen 16.0 mg/dl (6-23); Creatinine Clr Calc Pharmacy 69.2 ml/min; Glucose 64.0 mg/dl (70-99(Fasting))
[2025-02-15] MEDS: ONDANSETRON INJ 2 MG/ML 2 ML VIAL IV PRN (01:47)
[2025-02-15] MEDS: CAPSAICIN CR 0.075% 60 GM TUBE EXT PRN (02:02)
[2025-02-15] MEDS: METOCLOPRAMIDE HCL INJ 5 MG/ML 2 ML VIAL IV PRN (02:13)
[2025-02-15] MEDS: PANTOprazole 40 MG/10 ML SYR IV ONE (03:53)
[2025-02-15] MEDS: MELATONIN 3 MG TAB PO PRN (04:12)
[2025-02-15 04:19] LABS: Hematocrit (blood only) 39.1 % (37.0-47.0); Hemoglobin 13.5 g/dL (12.0-16.0); Immature Granulocytes # (auto) 0.07 K/uL (0.01-0.20); Immature Granulocytes % (auto) 0.4 %; Mean Corpuscular Hemoglobin 29.2 pg (25.0-34.0); Mean Corpuscular Volume 84.4 fL (80.0-100.0); Platelet Count 313 K/uL (130-400); RDW Standard Deviation 36.4 fL (36.4-46.3); Red Blood Count 4.63 M/uL (4.20-5.40); White Blood Count 17.02 K/ul (4.8-10.8)
[2025-02-15 04:35] LABS: Albumin Level 4.5 gm/dl (3.4-5.0); Anion Gap 12.0 (3-11); Bilirubin,Total 0.7 mg/dl (0.2-1.0); Calcium 9.0 mg/dl (8.6-10.3); Carbon Dioxide 20.0 mmol/L (21-32); Chloride 111.0 mmol/L (98-107); Magnesium 2.1 mg/dl (1.7-2.4); Potassium 3.1 mmol/L (3.5-5.1); Sodium 143.0 mmol/L (136-145)
[2025-02-15 04:41] LABS: Alanine Aminotransferase 20.0 U/L (7-52); Albumin Globulin Ratio 1.7 (0.9-2); Alkaline Phosphatase 58.0 U/L (34-104); Blood Urea Nitrogen 12.0 mg/dl (6-23); Creatinine Clr Calc Pharmacy 81.2 ml/min; Globulin 2.7 gm/dl (2.5-4.0); Glucose 101.0 mg/dl (70-99(Fasting)); Total Protein 7.2 gm/dl (6.0-8.3)
[2025-02-15] MEDS: METOCLOPRAMIDE HCL INJ 5 MG/ML 2 ML VIAL IV ONE (06:41)
[2025-02-15] MEDS: diphenhydrAMINE 50 MG/ML VIAL IV STA (06:42)
[2025-02-15] MEDS: PROCHLORPERAZINE 5 MG in SYRINGE 4 ML IV ONE (08:36)
[2025-02-15] MEDS: NICOTINE 14 MG/24 HR PATCH TD SCH (08:36)
[2025-02-15] MEDS ORDERED: PANTOprazole 40 MG/10 ML SYR IV SCH (09:00)
[2025-02-15] MEDS: LORazepam Inj 0.5 MG in SYRINGE 0.25 ML IV ONE (09:54)
[2025-02-15] MEDS ORDERED: METOCLOPRAMIDE HCL INJ 5 MG/ML 2 ML VIAL IV PRN (11:11)
[2025-02-15] MEDS: AZELASTINE HCL 0.1% NASAL 200 SPRAYS/27,400 MCG BTL SCH (12:36)
[2025-02-15] MEDS: CITALOPRAM 40 MG TAB PO SCH (12:37)
[2025-02-15] MEDS: PROPRANOLOL HCL 60 MG LA CAP PO SCH (12:38)
[2025-02-15] MEDS: GABAPENTIN 600 MG TAB PO SCH ×2 (12:41→20:48)
[2025-02-15] MEDS: REMOVE NICODERM PATCH SCH (12:43)
[2025-02-15] MEDS: ONDANSETRON INJ 2 MG/ML 2 ML VIAL IV SCH (13:40)
[2025-02-15] MEDS: D5W AND LACTATED RINGERS 1,000 ML IV SCH (13:42)
--- NOTE | 2025-02-15 14:20 | Electrocardiogram Report ---
Test Reason : Blood Pressure : */* mmHG Vent. Rate : 73 BPM Atrial Rate : 73 BPM P-R Int : 142 ms QRS Dur : 100 ms QT Int : 448 ms P-R-T Axes : 67 29 46 degrees QTcB Int : 493 ms Normal sinus rhythm with sinus arrhythmia Nonspecific ST abnormality Prolonged QT Abnormal ECG When compared with ECG of 11-Oct-2022 21:35, No significant change was found Confirmed by Bob Enriquez ([id number]) on 02/15/2025 2:20:41 PM Referred By: REFERRED SELF Confirmed By: Bob Enriquez
--- NOTE | 2025-02-15 14:57 | Hospitalist Progress Note ---
Date of Service February 15, 2025 Assessment & Plan (1) Hypokalemia due to excessive gastrointestinal loss of potassium: (2) Acute dehydration: (3) Gastroenteritis: (4) Intractable vomiting with nausea: (5) Cannabis hyperemesis syndrome: (6) High anion gap metabolic acidosis: Plan Patient is a 49-year-old female with a past medical history of anxiety, depression, gastroparesis, alcohol dependence (sober since September 2022), opioid use disorder, nicotine dependence. Patient presented due to sudden onset of nausea and vomiting found to have enteritis on diagnostic imaging. Laboratories revealed lactate 2.9, K+ 2.8, WBC 13.33, and elevated anion gap. Patient is being admitted for intractable nausea and vomiting and hypokalemia with dehydration. #hypokalemia/hypomagnesemia/acute dehydration - K+ 2.8 on admission. EKG without ST changes. UA with ketones. Patient with extremely dry mucous membranes. laboratories hemoconcentrated. K remains low, 3.1 - replace IV with poor PO intake Received 2L bolus, 2L maintenance fluids - will switch to D5/LR for maintenance AM BMP and mag #Enteritis/intractable nausea/cannabis hyperemesis syndrome - AP CT revealed enteritis. With leukocytosis (WBC 13.33). UDS positive for MDMA (bupropion use) and THC (has medical marijuana card x 1year) - not daily Marijuana user. Does report eating [employer] just pirior to symptoms started Blood cultures pending Slight worsening of leukocytosis - suspect related to stress/vomiting Nausea: scheudled zofran, reglan 1st line prn, ativan 2nd line. Discontinued capsaicin - not tolerating Full liquid diet, advance as tolerated Transition p.o. pantoprazole to IV #High anion gap lactic acidosis - lactate 2.9, anion gap 18, CO2 18. Repeat 1.7 after IVFs Likely in the setting of hemoconcentration with acute dehydration above. #mental healthcontinue bupropion, citalopram, lamotrigine, Gabapentin #RLScontinue propranolol as needed #Migrainescontinue propranolol #GERD/gastroparesistransitioning p.o. PPI and famotidine to IV. Has been following with [facility] gastroenterology and concerned that gastroparesis related to her Zepbound (injections on Fridays) #nicotine usepatient endorses vaping. Encourage smoking cessation NicoDerm patch ordered VTE ppx: SCDs, low risk Dispo: continued inpatient stay for symptom control, hopeful discharge tomorrow Admission and Anticipated Discharge Date Admission Date: February 14, 2025 Supervising Physician Co-Signing Physician Notes Attending Attestation - Chart reviewed, care plan d/w CHAUNCEY Iqbal. I agree w/ the stein components of her documentation. Felipe Solis MD Subjective patient seen this morning while down in the ED reports nausea and vomiting, mild abd pain has not been able to keep anything down for 2-3 days, no sick contacts, but did have a tay pak just piror to this starting no fevers or chills does feel some relief after all the medications this mroning - and is willing to try a few bites of food Review of Systems Review of Systems: All systems reviewed & are unremarkable except as noted in Subjective Physical Exam Physical Exam: The patient is awake, alert and oriented 3, nourished, normocephalic and atraumatic, in no acute distress. appears tired and sick HEENT- EOMI, mucous membranes dry. Hearing grossly intact. Heart-normal S1 and S2. No murmurs, rubs or gallops. Lungs-clear bilaterally, no respiratory distress, no accessory muscle use. Abdomen-normal bowel sounds and soft. No ascites noted. mild generalized tenderness . Rheumatologic-normal range of motion. Psychiatric-normal affect. Results & Data Results & Data Vital Signs (Past 12 Hours) Vital Signs Temp Pulse Pulse Resp BP Pulse Ox O2 Del Method 02/15/25 14:00 84 18 155/100 H 96 Room Air 02/15/25 09:30 90 18 113/80 95 Room Air 02/15/25 07:00 88 18 158/99 H 98 Room Air 02/15/25 06:55 94 H 02/15/25 06:00 98.2 F 78 20 182/127 H 96 Room Air 02/15/25 04:00 86 20 156/100 H 99 Room Air Laboratory Results cbc and chemistry reviewed PG Care Time/CCT Total # of Minutes Spent Total Time Spent with Patient: Total time spent is greater than 50% in coordination of care (as documented) at patient's floor/unit and/or counseling patient: Coding Level of Care Code 66016 SUB INP/OBS CARE 3/50MIN Diagnoses Hypokalemia due to excessive gastrointestinal loss of potassium E87.6 Acute dehydration E86.0 Gastroenteritis K52.9 Intractable vomiting with nausea R11.2 Cannabis hyperemesis syndrome R11.16 High anion gap metabolic acidosis E87.29
[2025-02-15] MEDS: LORazepam Inj 0.5 MG in SYRINGE 0.25 ML IV PRN (15:25)
[2025-02-15] MEDS: ACETAMINOPHEN 325 MG TAB PO PRN (20:49)
[2025-02-15] MEDS: PROMETHAZINE HCL 25 MG TAB PO ONE (23:13)
[2025-02-16] MEDS: RIZATRIPTAN BENZOATE 10 MG TAB PO PRN (00:44)
[2025-02-16 07:21] LABS: Anion Gap 7.0 (3-11); Blood Urea Nitrogen 4.0 mg/dl (6-23); Calcium 9.2 mg/dl (8.6-10.3); Carbon Dioxide 29.0 mmol/L (21-32); Chloride 110.0 mmol/L (98-107); Creatinine Clr Calc Pharmacy 64.8 ml/min; Glucose 95.0 mg/dl (70-99(Fasting)); Magnesium 1.9 mg/dl (1.7-2.4); Potassium 2.9 mmol/L (3.5-5.1); Sodium 146.0 mmol/L (136-145)
[2025-02-16 08:01] VITALS: RESP 20; O2SAT 99
[2025-02-16] MEDS: POTASSIUM CHLORIDE CRTAB 20 MEQ TABCR PO STA (08:07)
[2025-02-16] MEDS: PANTOprazole 40 MG/10 ML SYR IV SCH (08:11)
[2025-02-16] MEDS: POTASSIUM CHLORIDE / WTR 10 MEQ/100 ML PLCT IV SCH (08:39)
[2025-02-16 11:17] VITALS: BP 139/91; TEMP 99
[2025-02-16 13:25] LABS: Anion Gap 6.0 (3-11); Blood Urea Nitrogen 5.0 mg/dl (6-23); Calcium 9.2 mg/dl (8.6-10.3); Carbon Dioxide 27.0 mmol/L (21-32); Chloride 110.0 mmol/L (98-107); Creatinine Clr Calc Pharmacy 64.1 ml/min; Glucose 110.0 mg/dl (70-99(Fasting)); Potassium 3.7 mmol/L (3.5-5.1); Sodium 143.0 mmol/L (136-145)
--- NOTE | 2025-02-16 14:30 | Discharge Summary ---
Discharge Summary Date of Service February 16, 2025 Principal Dx & Hospital Course #1 = Principal Diagnosis (1) Hypokalemia due to excessive gastrointestinal loss of potassium: (2) Acute dehydration: (3) Gastroenteritis: (4) Intractable vomiting with nausea: (5) Cannabis hyperemesis syndrome: (6) High anion gap metabolic acidosis: Plan #hypokalemia/hypomagnesemia/acute dehydration - Patient is a 49-year-old female with a past medical history of anxiety, depression, gastroparesis, alcohol dependence (sober since September 2022), opioid use disorder, nicotine dependence. Patient presented due to sudden onset of nausea and vomiting found to have enteritis on diagnostic imaging. Laboratories revealed lactate 2.9, K+ 2.8, WBC 13.33, and elevated anion gap. EKG without ST changes. UA with ketones. Patient with extremely dry mucous membranes. laboratories hemoconcentrated. K replaced PO and IV, increased to 3.7 day of discharge. Received multiple liters of IVF and feeling much improved, tolerating PO and able to keep up with intake at home, stable for discharge to home. #Enteritis/intractable nausea/possible cannabis hyperemesis syndrome - AP CT revealed enteritis. With leukocytosis (WBC 13.33). UDS positive for MDMA (bupropion use) and THC (has medical marijuana card x 1year) - not daily Marijuana user. Does report eating [place] just pirior to symptoms started . Nausea and vomtiing controlled with antiemetics - felt like reglan made her worse. Refilled her rx for zofran and given a few tabs of phenergran for breakthrough. Discussed hand hygine and not sharing drinks. Blood cultures negative at 24 hours #High anion gap lactic acidosis - lactate 2.9, anion gap 18, CO2 18. Repeat 1.7 after IVFs Likely in the setting of hemoconcentration with acute dehydration above. #mental healthcontinue bupropion, citalopram, lamotrigine, Gabapentin #RLScontinue propranolol as needed #Migrainescontinue propranolol #GERD/gastroparesiscontinue PPI and famotidine. Follows [facility] gastro[facility]ology and concerned that gastroparesis related to her Zepbound (injections on Fridays)- instructed to hold next dose if not feeling 100% #nicotine usepatient endorses vaping. Encourage smoking cessation. No issues with nicotine patch inpatient. Dispo: discharge to home today Admission HPI Per Admitting Provider Patient is a 49-year-old female with a past medical history of anxiety, depression, gastroparesis, alcohol dependence (sober since September 2022), opioid use disorder, nicotine dependence. Patient presented due to sudden onset of nausea and vomiting found to have enteritis on diagnostic imaging. Laboratories revealed lactate 2.9, K+ 2.8, WBC 13.33, and elevated anion gap. Patient is being admitted for intractable nausea and vomiting thought to be secondary to cannabis hyperemesis syndrome and hypokalemia with dehydration. Patient seen at bedside. she stated this afternoon she developed sudden onset nausea and vomiting. She stated the vomit was yellow but denies any hematemesis. She feels as though she vomited over 10 times. She received Zofran x 2, Benadryl, and Reglan in the ED which has now improved her nausea however not completely resolved. She endorses dizziness and lightheadedness. She stated she did have some right sided abdominal pain with the vomiting earlier however now resolved. She stated she did not eat anything out of the ordinary today, had a sandwich and fruit cup earlier. She also endorses several days of dyspnea and nasal congestion however denies any sick contacts. COVID/flu/RSV swab negative. She also endorses increase in urinary frequency for several days however denies any dysuria or hematuria. She denies any chest pain or diarrhea. Patient does endorse vaping use, would like nicotine patch. She denies any alcohol use. She denies illicit drug use however on further questioning patient does have her medical marijuana card which she has had for about 1 year. She does not smoke every day and stated she smokes here and there. Patient educated on cannabis hyperemesis syndrome. Will trial capsaicin if nausea returns. She took her morning and afternoon medications however vomited her afternoon medications. She is due for her evening medications. She wishes to be full code. Nursing staff at bedside. Patient was placed on a Macy hugger due to temperature 34.6 C. Temperature currently 36.9C, Macy hugger discontinued. Nursing to remove previously ordered Ramírez catheter as no acute indication for catheter at this time. Discharge Exam General: NAD, VS as above, appears well HEENT: MMM Resp: normal respiratory effort, lungs clear to auscultation CV: RRR, no murmur, Abd: normal bowel sounds, non tender, soft Extremities: Moves all extremities, no edema Neuro: A&O x3, Discharge Plan Discharge Items Patient Disposition: Home - Self-Care Reason For Visit: HYPOKALEMIA, INTRACTABLE VOMITING, METABOLIC ACIDO Discharge Diagnosis: enteritis Condition on Discharge: Good Activity: Resume your previous activity Weightbearing: Full weightbearing Non-emergency contact: Primary Care Provider Call non-emergency contact if: you have any medication questions, your symptoms worsen, your pain is not controlled, your pain is worsening and your temperature is above 101.5 Follow-up/Referrals: Diogenes Foster DO [Primary Care Provider] - 03/03/25 11:30 am (follow up within one week ) Diet: Regular Addtl Attending Provider Instructions: Ms. García, You were hospitalized after having continued nausea and vomiting at home - unable to keep food down. Found to have enteritis (inflamation of small intestine) on CT scan. Likely caused by a viral pathogen, possibly from bad food. Thankfully you have improved with IV fluids and nausea medications. You had low potassium levels from the vomiting but this has corrected itself with increased intake and potassium replacement. You will be sent home with Zofran and Phenergan as needed or nausea. Recommend bland diet over the next few days, increasing as tolerated. Do not share drinks and practice good handwashing to prevent the spread of infection to others. If you do not feel back to 100% would recommend skipping your next dose of Zepbound. You have blood cultures pending at the time of discharge, they are negative at 24 hours but take 5 days to get final results. If they turn positive you will be notified, you can also check in with your PCP or the [facility] portal. [facility] er, given your symptoms I do not expect they will be positive. No changes to your home medications. Please follow up with your PCP within one week. Activity: You can do normal everyday activities as your body allows. Take rest breaks if you feel tired. Do not overexert. Stop activity if you have pain, shortness of breath or feel dizzy. Follow-up appointments: Make an appointment with your primary care physician within one week of discharge. A copy of this summary will be sent to them. Every time you see your primary care physician, or any other doctor, bring your medication list, and a list of questions. CONTACT YOUR PRIMARY CARE PROVIDER if you experience any of the following: Shortness of breath or difficulty breathing Fevers or chills Feeling tired with normal activity or experiencing dizziness or fainting Difficulty following your treatment plan, or difficulty taking medications CALL 911 OR GO TO THE EMERGENCY DEPARTMENT if you experience any of the following: Severe abdominal pain or nausea/vomiting Severe chest pain, or chest pain that radiates (moves) to your jaw or arm Sudden, severe shortness of breath or difficulty breathing Thank you for allowing us to participate in your care. Pending Studies at Discharge: Yes (blood cultures ) Stand-Alone Forms: My [facility] [place], Smoking Cessation Medications and DC Order Prescriptions: New promethazine 12.5 mg tablet 12.5 mg PO TID PRN (Reason: refractory nausea ) Qty: 6 0RF Continued propranolol 60 mg capsule,extended release 24 hr 60 mg PO DAILY 30 Days Qty: 30 2RF cyclobenzaprine 5 mg tablet See Rx Instructions .ROUTE .COMPLEX Qty: 30 1RF Dose Instruction: TAKE 1 TABLET BY MOUTH EVERY DAY AT BEDTIME NEEDED FOR MUSCLE SPASM Rx Instructions: TAKE 1 TABLET BY MOUTH EVERY DAY AT BEDTIME NEEDED FOR MUSCLE SPASM bupropion HCl [Wellbutrin SR] 200 mg tablet sustained-release 12 hr 200 mg PO BID citalopram [Celexa] 40 mg tablet 40 mg PO DAILY folic acid 1 mg tablet 1 mg PO DAILY Qty: 90 1RF Zepbound 2.5 mg/0.5 mL solution 2.5 mg subcut WK azelastine 137 mcg (0.1 %) spray,non-aerosol 2 spray intranasal BID Qty: 30 2RF Rx Instructions: administer into each nostril ropinirole 0.5 mg tablet 0.5 mg PO BID PRN (Reason: restless leg syndrome) Qty: 180 1RF Nurtec ODT 75 mg tablet,disintegrating 75 mg PO Q OTHER DAY PRN (Reason: migraine headache) Qty: 8 3RF gabapentin 600 mg tablet 600 mg PO TID Rx Instructions: 600 AM 600 AFTERNOON AND 1200 HS acetaminophen [Tylenol Extra Strength] 500 mg tablet 500 mg PO Q6H PRN (Reason: Pain) famotidine [Acid Hydroelectric Machinery Mechanic (famotidine)] 20 mg tablet 20 mg PO BID Qty: 180 3RF pantoprazole 40 mg tablet,delayed release (DR/EC) 40 mg PO DAILY Qty: 90 3RF ibuprofen [Advil] 200 mg tablet 800 mg PO Q8H PRN (Reason: pain) Qty: 90 0RF diclofenac sodium 1 % gel 2 g topical QID Qty: 100 0RF Rx Instructions: apply to single elbow, wrist or hand; for hand includes palm/fingers/back of hand multivitamin Tablet 1 tab PO DAILY Qty: 90 0RF lamotrigine [Lamictal] 25 mg tablet 200 mg PO BID rizatriptan 10 mg tablet 10 mg PO ONCE PRN (Reason: Migraine Headache) Rx Instructions: TAKE 1 TAB NEEDED FOR HEADACHE. MAY TAKE SECOND TAB NEEDED AFTER 2 HOUR. NO MORE THAN 2 TABS IN 24 HOURS. DO NOT USE MORE THAN 3 DAYS PER WEEK. ondansetron 4 mg tablet,disintegrating 4 mg PO Q8H PRN (Reason: nausea and vomiting) Qty: 12 0RF Discharge Orders: Discharge Order (Routine); Ordered 02/16/25 Ordered By: Yamilet Castro/Other Patient Handouts: ED Gastroenteritis, Viral (Adult) Admission Data Admit Date/Time: 02/14/25 22:32 Attending Provider: Felipe Solis Admit Provider: Hood Mena Primary Care Provider: Diogenes Foster Other Interventions: Discharge Summary Assessment (RN) Last Done: 02/16/25 16:08 Hospital Stay Data Consultations 02/14/25 21:53 ED Decision to Admit Stat Diagnostic Imagining Performed Abdomen/Pelvis CT 02/14/25 20:36 Exam(s): CT ABDOMEN + PELVIS With Contrast IV Amt: 90 ml optiray 320 EXAM: CT Abdomen and Pelvis With Intravenous Contrast CLINICAL HISTORY: Reason for exam: abdominal pain. TECHNIQUE: Axial computed tomography images of the abdomen and pelvis with intravenous contrast. CTDI is 8.9 mGy and DLP is 398.53 mGy-cm. Automated exposure control was utilized for the study. A dose lowering technique was utilized adhering to the principles of ALARA. CONTRAST: Patient received 90 ml optiray 320 of IV contrast COMPARISON: CT abdomen/pelvis on 08/28/2022 FINDINGS: Lung bases: Unremarkable. No mass. No consolidation. Mediastinum: Small hiatal hernia. ABDOMEN: Liver: Unremarkable. No mass. Gallbladder and bile ducts: Prior cholecystectomy. No ductal dilation. Pancreas: Unremarkable. No mass. No ductal dilation. Spleen: Unremarkable. No splenomegaly. Adrenals: Unremarkable. No mass. Kidneys and ureters: Unremarkable. No hydronephrosis or obstructing ureteral stone. Stomach and bowel: Fluid-filled small bowel could be secondary to enteritis in the appropriate clinical setting. Evaluation of the stomach is limited by underdistention. Moderate stool in the colon. No small bowel obstruction. PELVIS: Appendix: Normal appendix. Bladder: Ramírez catheter in an underdistended bladder limits evaluation. Reproductive: Unremarkable as visualized. ABDOMEN and PELVIS: Intraperitoneal space: Unremarkable. No free air. No significant fluid collection. Bones/joints: Curvature of the spine. Degenerative changes of the spine. No acute fracture. No dislocation. Soft tissues: Injection granuloma in the right gluteal soft tissues. Vasculature: Unremarkable. No abdominal aortic aneurysm. Lymph nodes: Unremarkable. No enlarged lymph nodes. IMPRESSION: Fluid-filled small bowel could be secondary to enteritis in the appropriate clinical setting. Electronically signed by: Ian Tarango M.D. 02/14/25 21:49 PM Chest X-Ray 02/14/25 20:42 Exam(s): XR CXR 1 VIEW EXAM: XR Chest, 1 View CLINICAL HISTORY: Reason for exam: vomitting. TECHNIQUE: Frontal view of the chest. COMPARISON: Chest radiograph on 08/28/2022 FINDINGS: Hardware: None. Lungs/pleura: Normal. No focal consolidation. No pleural effusion or pneumothorax. Heart/mediastinum: Normal. No cardiomegaly. Soft tissues: Unremarkable. Bones: No acute fracture. Upper abdomen: Normal. IMPRESSION: No acute disease identified. Electronically signed by: Ian Tarango M.D. 02/14/25 22:[address] 02/14/25 20:44 Exam(s): CT HEAD Without Contrast EXAM: CT Head Without Intravenous Contrast CLINICAL HISTORY: Reason for exam: de santiago. TECHNIQUE: Axial computed tomography images of the head/brain without intravenous contrast. CTDI is 37.78 mGy and DLP is 546.36 mGy-cm. Automated exposure control was utilized for the study. A dose lowering technique was utilized adhering to the principles of ALARA. COMPARISON: CT head on 09/27/2022 FINDINGS: Brain: No acute infarct or hemorrhage. No extra-axial fluid collection. No mass effect or midline shift. Ventricles and sulci: Normal. No ventriculomegaly or intraventricular hemorrhage. Bones: Normal. No bony lesion or acute fracture. Subcutaneous tissues: Normal. Sinuses: Normal. No air-fluid levels or mucosal thickening. Mastoid air cells: Normal. Orbits: Grossly unremarkable. IMPRESSION: No acute intracranial abnormality. Electronically signed by: Ian Tarango M.D. 02/14/25 21:51 PM Pending Results Patient Have Any Pending Studies at Discharge: Yes (blood cultures ) Discharge Instructions Given to Patient (Per Discharging Provider) Ms. García, You were hospitalized after having continued nausea and vomiting at home - unable to keep food down. Found to have enteritis (inflamation of small intestine) on CT scan. Likely caused by a viral pathogen, possibly from bad food. Thankfully you have improved with IV fluids and nausea medications. You had low potassium levels from the vomiting but this has corrected itself with increased intake and potassium replacement. You will be sent home with Zofran and Phenergan as needed or nausea. Recommend bland diet over the next few days, increasing as tolerated. Do not share drinks and practice good handwashing to prevent the spread of infection to others. If you do not feel back to 100% would recommend skipping your next dose of Zepbound. You have blood cultures pending at the time of discharge, they are negative at 24 hours but take 5 days to get final results. If they turn positive you will be notified, you can also check in with your PCP or the [facility] portal. However, given your symptoms I do not expect they will be positive. No changes to your home medications. Please follow up with your PCP within one week. Activity: You can do normal everyday activities as your body allows. Take rest breaks if you feel tired. Do not overexert. Stop activity if you have pain, shortness of breath or feel dizzy. Follow-up appointments: Make an appointment with your primary care physician within one week of discharge. A copy of this summary will be sent to them. Every time you see your primary care physician, or any other doctor, bring your medication list, and a list of questions. CONTACT YOUR PRIMARY CARE PROVIDER if you experience any of the following: Shortness of breath or difficulty breathing Fevers or chills Feeling tired with normal activity or experiencing dizziness or fainting Difficulty following your treatment plan, or difficulty taking medications CALL 911 OR GO TO THE EMERGENCY DEPARTMENT if you experience any of the following: Severe abdominal pain or nausea/vomiting Severe chest pain, or chest pain that radiates (moves) to your jaw or arm Sudden, severe shortness of breath or difficulty breathing Thank you for allowing us to participate in your care. Supervising Physician Co-Signing Physician Notes Attending Attestation and Discharge Note: Chart reviewed, discharge care plan d/w CHAUNCEY Iqbal. I agree w/ the stein components of her discharge documentation. Of note - I did not perform a bedside visit or exam on day of discharge. 49yo female with anxiety, depression, gastroparesis, alcohol dependence (abstinent since September 2022), opioid use disorder, nicotine dependence. Presented with nausea and vomiting and had hypokalemia on admission labs. CT a/p showed small bowel findings c/w enteritis. COVID/flu/RSV were negative. Received copious IV fluids along with potassium supplementation. K and mag level were both wnl by time of discharge. GI symptoms improved and she was tolerating diet prior to discharge home. Suspect this was a viral gastroenteritis. Upon discharge home no other specific therapies were needed. Felipe Solis MD Total Time Total Time Spent Total Time Spent (In Minutes): Time spent day of discharge 37 minutes including direct patient care, medication reconciliation, documentation, review of labs and images, and coordination of care. Coding Level of Care Code 41555 INP/OBS DISCH >30 MIN Diagnoses Hypokalemia due to excessive gastrointestinal loss of potassium E87.6 Acute dehydration E86.0 Gastroenteritis K52.9 Intractable vomiting with nausea R11.2 Cannabis hyperemesis syndrome R11.16 High anion gap metabolic acidosis E87.29
[2025-02-16 16:01] VITALS: PULSE 80
[2025-02-22 13:52] LABS: MDA negative; MDEA negative; MDMA (Ecstasy) Urine, Confirm negative; Marijuana Quant, GCMS Urine 505 ng/mL (<5)
== END 2025-02-16 17:26 | disposition home or self-care (01) | DRG 392 ==
LOC: ED 20:00 → EDINP 22:32 → SUATTDRO 22:32 → INTOOBSV 22:32 → 2N 23:42